=== PATIENT | female | born 1940 | race Caucasian/White ===

== ENCOUNTER 2019-09-30 11:29 | Outpatient (CLI) | payer OTHER, SELFPAY ==
--- NOTE | ~2019-09-30 | XR_ITS ---
EXAMINATION: XR hip RT 2V w AP pelvis EXAM DATE: 09/30/2019 12:16 INDICATION: Acute onset pelvic, right hip pain. TECHNIQUE: Right hip frontal, 'frog leg' projections for interpretation. Frontal projection pelvis. There is no prior study for comparison. FINDINGS: Smooth right hip femoral head contour, no radiographic evidence of avascular necrosis. The re is mild symmetric bilateral hip primary osteoarthritis. There are no acute fractures or dislocatio ns identified. There is no subcutaneous gas. The soft tissue is unremarkable. There are no radiop aque foreign bodies. IMPRESSION: No acute osseous findings. Mild bilateral hip osteoarthritis. Reviewed, dictated and finalized at location A.
== END 2019-09-30 11:30 | disposition home or self-care (01) ==
PROVIDERS: PCP Physician Assistant; Visit Provider Physician Assistant
DX: M25.551 Pain in right hip (principal); M16.0 Bilateral primary osteoarthritis of hip
CPT/HCPCS: 73502

== ENCOUNTER 2021-03-04 04:17 | Observation (INO) | payer OTHER, SELFPAY ==
[2021-03-04] VITALS (20 sets, daily range): BP systolic 109–199; BP diastolic 9–93; PULSE 65–95; RESP 16–26; TEMP 36.6–37.1; O2SAT 95–100; BMI 30.3
--- NOTE | ~2021-03-04 | XR_ITS ---
XR knee LT 2V DATE: 03/06/2021 15:01 INDICATION: Fall. Knee pain and bruising TECHNIQUE: 3 views including crosstable lateral COMPARISON: August 08, 2015 bilateral knees FINDINGS: Diffuse osteopenia. No fracture or dislocation or joint effusion is evident. No periosteal reaction or bone destruction. There is tricompartment osteoarthritis, mild at the medial compartment, moderate at the lateral parag rtment and severe at the patellofemoral compartment. Femoral and popliteal arterial calcifications. 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
--- NOTE | ~2021-03-04 | CT_ITS ---
EXAMINATION: CT brain wo con EXAM DATE: 03/04/2021 07:16 INDICATION: Dizziness. TECHNIQUE: Spiral CT of the head was performed without contrast. Axial, coronal and sagittal images were reviewed. The dose-length product (DLP) for this examination was 605.33 mGy-cm. The exposure w as tailored according to patient size, and iterative reconstruction (ASIR) was used as additional dos e reduction technique. Comparison is made to prior examination from 08/08/2015. FINDINGS: There is no acute intraparenchymal hemorrhage. No evidence of intraparenchymal brain mass lesion. No evidence of acute infarction. Please note that initial head CT has limited sensitivity f or small or acute infarctions. 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 There is moderate to severe periventricular and subcortical hypodensity, nonspecific but probably related to small ves maulik ischemic disease. There is moderate prominence of the sulci and ventricles related to cerebral atrophy. There is intracranial carotid arteriosclerosis. There are no extra-axial collections. Th ere is no mass effect or midline shift. The orbits are unremarkable. Soft tissue is unremarkable. The visualized sinuses and mastoid air cells are well aerated. IMPRESSION: 1. No acute intracranial findings. 2. Chronic age related findings. Reviewed, dictated and finalized at location A.
--- NOTE | ~2021-03-04 | XR_ITS ---
XR ribs LT 2V DATE: 03/06/2021 15:01 INDICATION: Left rib pain after fall TECHNIQUE: 3 views of left ribs COMPARISON: 07/22/2016 PA and lateral chest FINDINGS: There is diffuse osteopenia. No left rib fracture or bone destruction is evident. There is extensive calcification of the thoracic and abdominal aorta. IMPRESSION: Diffuse osteopenia; no apparent rib fracture is noted Reviewed, dictated and finalized at location B.
--- NOTE | 2021-03-04 04:52 | PC.NURSE ---
attempted to obtain orthostatic vitals per MD order. pt unable to lie down d/t dizziness. manual bp obtained sitting and standing.
[2021-03-04] MEDS: SODIUM CHLORIDE 0.9% IV 1,000 ML 999 ML IV CONT (04:58)
[2021-03-04] MEDS: MECLIZINE HCL 25 MG TABLET PO (04:58)
[2021-03-04 05:01] LABS: Basophils Absolute Auto 0.1 K/mm3 (0.0-0.1); Basophils Percent Auto 0.6 % (0.2-1.2); Eosinophils Absolute Auto 0.1 K/mm3 (0-0.3); Eosinophils Percent Auto 1.1 % (0-4.4); Hematocrit 39.3 % (37.0-47.0); Hemoglobin 12.6 g/dL (12.0-15.0); Immature Granulocyte Absolute 0.02 K/mm3 (0.00-0.031); Immature Granulocyte Percent A 0.2 % (0-0.5); Lymphocytes Percent Auto 23.2 % (18.3-44.2); Mean Corpuscular HGB Conc 32.1 g/dl (32-36); Mean Corpuscular Hemoglobin 30.7 pg (26-34); Mean Corpuscular Volume 95.6 fl (80-100); Mean Platelet Volume 9.8 fl (7.4-10.4); Monocytes Absolute Auto 0.8 K/mm3 (0.1-0.6); Monocytes Percent Auto 9.3 % (2.6-8.5); Neutrophils Absolute Auto 5.4 K/mm3 (1.3-6.7); Neutrophils Percent Auto 65.6 % (45.5-73.1); Platelet Count Result 209 k/mm3 (150-375); Red Blood Count 4.11 M/mm3 (4.2-5.4); Red Cell Distribution Width 13.8 % (11.5-14.5); White Blood Count 8.2 K/mm3 (4.5-10.0)
[2021-03-04 05:17] LABS: Anion Gap 6 mmol/L (8-16); Blood Urea Nitrogen 14 mg/dL (7-17); Calcium 8.9 mg/dL (8.4-10.2); Carbon Dioxide 27 mmol/L (22-30); Chloride 106 mmol/L (98-107); Estimated CRCL calculation 43 ml/min; Estimated Glomerular Filt Rate > 60; Glucose 111 mg/dL (65-110); Potassium 3.4 mmol/L (3.4-5.0); Sodium 139 mmol/L (137-145)
--- NOTE | 2021-03-04 06:17 | ED.GENADULT ---
HPI - General Adult General Chief complaint: Fall Stated complaint: glf, when standing gets dizzy/nauseated Time Seen by Provider: 03/04/21 04:20 History of Present Illness HPI narrative: Patient is an 80-year-old female who presents ER after falling onto the ground. She reports she is sitting up out of bed to use her bedside commode when she just began to fall down forward. She landed on her knees. She has no knee pain. She is too weak to stand back up. She did not strike her head or lose consciousness. No evidence of injury or trauma. Patient reports she was feeling very dizzy but had no sweats or nausea or vomiting. She has no focal weakness in arm or leg. No slurred speech or facial droop. Denies any urinary symptoms. Related Data Allergies Allergy/AdvReac Type Severity Reaction Status Date / Time SHAQUILLE Inhibitors Allergy Unknown Unknown Verified 03/04/21 04:54 amlodipine Allergy Unknown Unknown Verified 03/04/21 04:54 amoxicillin Allergy Unknown Unknown Verified 03/04/21 04:54 atorvastatin Allergy Unknown Unknown Verified 03/04/21 04:54 codeine Allergy Unknown N/V Verified 07/22/16 10:28 ibuprofen Allergy Unknown Unknown Verified 03/04/21 04:54 meperidine Allergy Unknown Unknown Verified 03/04/21 04:54 Penicillins Allergy Unknown Unknown Verified 03/04/21 04:54 simvastatin Allergy Unknown Unknown Verified 03/04/21 04:54 Review of Systems Review of Systems: All systems reviewed & are unremarkable except as noted in HPI and below Constitutional: Constitutional: Denies chills, Denies fever(s) and Reports weakness ENT: Reports dizziness, Denies nasal congestion and Denies sore throat Cardiovascular: Cardiovascular: Denies chest pain and Denies radiating jaw, neck or arm pain Musculoskeletal: Musculoskeletal: Denies arthralgias and Denies joint swelling Neurologic: Reports dizziness, Denies headache(s), Denies focal weakness and Denies numbness PMF Past Medical History Medical History (Updated 03/04/21 @ 06:33 by Lisandro Asher MD) Hypertension Surgical History Surgical History (Updated 03/04/21 @ 06:19 by Lisandro Asher MD) No pertinent past surgical history Family History Family History (Updated 02/04/14 @ 07:13 by DOCTOR UNKNOWN) Father Family history of malignant neoplasm Mother Family history of coronary artery disease Social History Social History Smoking status: Never smoker Second hand tobacco smoke exposure: No Alcohol intake: never Exam Narrative: GENERAL: Well-appearing, well-nourished, and in no acute distress. HEAD: Normocephalic, atraumatic. EYES: PERRL and EOMI with left gaze nystagmus. ENT: Mucous membranes moist. TMs unremarkable. CHEST: Clear to auscultation. No respiratory distress. HEART: Regular rate and rhythm. Normal peripheral pulses. ABDOMEN: Soft, nontender, nondistended. EXTREMITIES: Normal range of motion. No edema. SKIN: Warm, dry, no rash. NEURO: No focal deficits. No upper or lower extremity drift. Alert and oriented x3. Course Course Emergency Course: Patient is able to get up and walk but with a guarded gait and requires assistance. Lives at home by herself. Evidence of UTI. Patient also seems to have some vertigo along with this is making it difficult for her to ambulate. She has some left gaze nystagmus and feels dizzy and nauseated with standing and other movements. Vital Signs Vital signs: Vital Signs Temperature 98.7 F 03/04/21 04:39 Pulse Rate 83 03/04/21 04:39 Respiratory Rate 18 03/04/21 04:39 Blood Pressure 170/90 H 03/04/21 04:39 Pulse Oximetry 98 03/04/21 04:39 Temperature 98.7 F 03/04/21 04:39 Pulse Rate 82 03/04/21 05:07 Respiratory Rate 20 03/04/21 05:07 Blood Pressure 165/90 H 03/04/21 04:52 Pulse Oximetry 100 03/04/21 05:07 Medical Decision Making Vital Signs Vital Signs: Vital Signs Temperature 98.7 F 03/04/21 04:39 Pulse Rate 83 03/04/21 04:39 Respiratory Rate
[2021-03-04 06:26] LABS: Add Urine Microscopic? YES; Appearance Urine Cloudy (Clear); Bacteria Urine Trace /hpf; Bilirubin Urine Negative (Negative); Blood Urine 1+ (Negative); Color Urine Yellow (Yellow); Glucose Urine UA Negative (Negative); Ketones Urine Negative (Negative); Leukocyte Esterase Ur 1+ LEU/UL (Negative); Mucus Urine Rare /lpf; Nitrate Urine Positive (Negative); Protein Urine Negative (Negative); RBC Urine 0-2 /hpf (0-2); Specific Grav Ur 1.008 (1.001-1.035); Squamous Epithelial Cell Urine Moderate /hpf (Few); Urobilinogen Urine Negative mg/dL (<2.0); WBC Urine 21-30 /hpf
--- NOTE | 2021-03-04 10:44 | PM.IMHP ---
H&P: HPI History of Present Illness Date/Time: 03/04/21 10:44 Chief Complaint: Fall Generalized weakness Narrative: Patient is 80 years old elderly female who was admitted through the emergency room with the following complaints. According to the patient she was doing fine at home but for the last few days she was feeling weak and tired. She tried to get up from her bed and go to commode when she suddenly fell down. There was no chest pain or shortness of breath or palpitation before or after falling down. Patient did not had her head. Patient did not lose consciousness. Patient just felt weak and tired. Patient did hit her he needs but denies any pain in the knees at present time. Patient was found to have a urinary tract infection. And was admitted for further evaluation treatment. At present time patient denies any shortness of breath or chest pain. Patient mood is stable Review of Systems Review of Systems: All systems reviewed & are unremarkable except as noted in HPI and below (the history and physical examination.) [facility] Past Medical History Medical History Hypertension Surgical History Surgical History No pertinent past surgical history Family History Family History Father Family history of malignant neoplasm Mother Family history of coronary artery disease Social History Social History Smoking status: Never smoker Second hand tobacco smoke exposure: No Alcohol intake: never Substance use: never Spiritual care concerns: No Meds Home Medications and Allergies Home Medications Medication Instructions Recorded Confirmed Type alprazolam [Xanax] 0.25 mg PO TID PRN 03/04/21 03/04/21 History diphenoxylate-atropine [Lomotil] 1 tablet PO QID PRN 03/04/21 03/04/21 History lisinopril 20 mg PO DAILY 03/04/21 03/04/21 History Allergies Allergy/AdvReac Type Severity Reaction Status Date / Time SHAQUILLE Inhibitors Allergy Unknown Unknown Verified 03/04/21 11:14 amlodipine Allergy Unknown Unknown Verified 03/04/21 11:14 amoxicillin Allergy Unknown Unknown Verified 03/04/21 11:14 atorvastatin Allergy Unknown Unknown Verified 03/04/21 11:14 codeine Allergy Unknown N/V Verified 03/04/21 11:14 ibuprofen Allergy Unknown Unknown Verified 03/04/21 11:14 meperidine Allergy Unknown Unknown Verified 03/04/21 11:14 Penicillins Allergy Unknown Unknown Verified 03/04/21 11:14 simvastatin Allergy Unknown Unknown Verified 03/04/21 11:14 Vital Signs Vital Signs - 24 hr 03/04/21 04:39 03/04/21 04:51 03/04/21 04:52 Temperature 37.1 C Pulse Rate 83 95 Respiratory Rate 18 Blood Pressure 170/90 H 170/9 H 165/90 H Pulse Oximetry 98 03/04/21 05:07 03/04/21 05:15 03/04/21 05:35 Temperature Pulse Rate 82 73 77 Respiratory Rate 20 16 19 Blood Pressure Pulse Oximetry 100 99 98 03/04/21 05:51 03/04/21 06:00 03/04/21 06:01 Temperature Pulse Rate 84 80 80 Respiratory Rate 18 20 18 Blood Pressure 199/66 H Pulse Oximetry 99 100 100 03/04/21 06:03 03/04/21 06:15 03/04/21 06:33 Temperature Pulse Rate 80 82 90 Respiratory Rate 23 H 19 18 Blood Pressure 196/81 H Pulse Oximetry 100 100 100 03/04/21 07:16 03/04/21 07:20 03/04/21 07:23 Temperature Pulse Rate 94 79 Respiratory Rate 26 H 16 Blood Pressure 186/93 H 186/93 H Pulse Oximetry 100 97 03/04/21 08:01 03/04/21 10:19 Temperature Pulse Rate 71 88 Respiratory Rate 17 16 Blood Pressure 154/72 H 172/72 H Pulse Oximetry 99 100 Exam Narrative: GENERAL: Well-appearing, well-nourished, and in no acute distress. HEAD: Normocephalic, atraumatic. EYES: PERRL and EOMI with left gaze nystagmus. ENT: Mucous membranes moist. TMs unremarkable. CHEST: Clear to auscultation. No respiratory distress. HEART: Reg
[2021-03-04] MEDS: SODIUM CHLORIDE 0.9% IV 1,000 ML 125 ML IV CONT ×2 (11:05→20:42)
--- NOTE | 2021-03-04 11:08 | ADMGEN ---
This patient, Gege Jewell, was admitted to Medical Room 242-. Patient/family oriented to hospital policies and general routines including ID bracelet, bed and alarms, visiting hours, pain management, procedures, bathroom and other care routines, personal items, smoking policy, room service/diet, and visiting hours. Information on how to activate the Rapid Response Team has been discussed. Patient/Family are encouraged to report perceived risks to care and to ask questions if they do not understand what they are told or what they should do.
[2021-03-04] MEDS: lisinopriL 20 MG TABLET PO (14:54)
[2021-03-04] MEDS: HEPARIN SODIUM 5,000 UNITS/ML VIAL 5000 UNITS SUB-Q (20:43)
[2021-03-04] MEDS: ACETAMINOPHEN 500 MG TABLET 1000 MG PO (20:43)
[2021-03-05] MEDS: SODIUM CHLORIDE 0.9% IV 1,000 ML 125 ML IV CONT ×3 (05:12→21:44)
[2021-03-05 05:23] LABS: Hematocrit 34.3 % (37.0-47.0); Hemoglobin 10.8 g/dL (12.0-15.0); Mean Corpuscular HGB Conc 31.5 g/dl (32-36); Mean Corpuscular Hemoglobin 30.9 pg (26-34); Mean Corpuscular Volume 98.3 fl (80-100); Mean Platelet Volume 10.8 fl (7.4-10.4); Platelet Count Result 168 k/mm3 (150-375); Red Blood Count 3.49 M/mm3 (4.2-5.4); Red Cell Distribution Width 13.7 % (11.5-14.5); White Blood Count 8.5 K/mm3 (4.5-10.0)
[2021-03-05 05:32] LABS: Alanine Aminotransferase 10 U/L (4-35); Alkaline Phosphatase 87 U/L (38-126); Anion Gap 5 mmol/L (8-16); Aspartate Amino Transferase 20 U/L (14-36); Bilirubin,Total 0.7 mg/dL (0.2-1.3); Blood Urea Nitrogen 10 mg/dL (7-17); Calcium 8.2 mg/dL (8.4-10.2); Carbon Dioxide 23 mmol/L (22-30); Chloride 112 mmol/L (98-107); Estimated CRCL calculation 48 ml/min; Estimated Glomerular Filt Rate > 60; Glucose 100 mg/dL (65-110); Potassium 3.8 mmol/L (3.4-5.0); Sodium 140 mmol/L (137-145)
[2021-03-05 06:00] VITALS: BP 139/53; PULSE 59; RESP 18; TEMP 36.3; O2SAT 97
[2021-03-05] MEDS: HEPARIN SODIUM 5,000 UNITS/ML VIAL 5000 UNITS SUB-Q ×2 (08:29→20:55)
[2021-03-05] MEDS: lisinopriL 20 MG TABLET PO (08:29)
--- NOTE | 2021-03-05 08:45 | PM.IMPN ---
Progress Note: A&P Assessment and Plan (1) Acute UTI: Code(s): N39.0 - Urinary tract infection, site not specified Status: Acute Assessment and Plan: Will continue with IV antibiotics. Urine culture is pending (2) Vertigo: Code(s): R42 - Dizziness and giddiness Status: Acute Assessment and Plan: Currently asymptomatic. Monitor closely. (3) Fall: Code(s): W19.XXXA - Unspecified fall, initial encounter Status: Acute Assessment and Plan: 03/05/2021 Start physical therapy. black off worker for possible alf placement. Urine cultures are pending, will continue current IV antibiotics. Subjective Date/time seen: 03/05/21 08:45 Patient was seen during the morning rounds today. Patient vertigo is better. No shortness of breath or chest pain. No abdominal pain, no nausea, no vomiting. Mood stable. Review of Systems Review of Systems: All systems reviewed & are unremarkable except as noted in HPI and below (the history and physical examination.) Exam Narrative: GENERAL: Well-appearing, well-nourished, and in no acute distress. HEAD: Normocephalic, atraumatic. EYES: PERRL and EOMI with left gaze nystagmus. ENT: Mucous membranes moist. TMs unremarkable. CHEST: Clear to auscultation. No respiratory distress. HEART: Regular rate and rhythm. Normal peripheral pulses. ABDOMEN: Soft, nontender, nondistended. EXTREMITIES: Normal range of motion. No edema. SKIN: Warm, dry, no rash. NEURO: No focal deficits. No upper or lower extremity drift. Alert and oriented x3. Objective Data Vital Signs Vital Signs: Vital Signs - 24 hr 03/04/21 10:19 03/04/21 11:07 03/04/21 14:00 Temperature 36.6 C 36.8 C Pulse Rate 88 65 84 Respiratory Rate 16 19 20 Blood Pressure 172/72 H 176/51 H 150/55 H Pulse Oximetry 100 100 98 03/04/21 22:00 03/05/21 06:00 Temperature 36.8 C 36.3 C L Pulse Rate 91 59 L Respiratory Rate 16 18 Blood Pressure 109/86 139/53 L Pulse Oximetry 95 97 Intake/Output Intake/Output: Intake & Output 03/02/21 03/03/21 03/04/21 03/05/21 23:59 23:59 23:59 23:59 Intake Total 2830 1350 Output Total 200 Balance 2830 1150 Meds/Results Medications: Active Medications Generic Name Dose Route Start Last Admin Trade Name Alecq PRN Reason Stop Dose Admin Acetaminophen 1,000 mg 03/04/21 20:35 03/04/21 20:43 Acetaminophen 500 Mg Tablet PO 1,000 mg Q6H PRN Administration Mild Pain (1-3) or Fever Alprazolam 0.25 mg 03/04/21 11:40 Alprazolam (*Crx) 0.25 Mg Tablet PO TID PRN Anxiety Diphenoxylate HCl/Atropine 1 tablet 03/04/21 11:40 Diphenoxylate/Atropine (*Crx) 2.5 Mg Tablet PO QID PRN Diarrhea Heparin Sodium (Porcine) 5,000 units 03/04/21 21:00 03/05/21 08:29 Heparin Sodium 5,000 Units/Ml Vial SUB-Q 5,000 units Q12HR VALARIE Administration Sodium Chloride 1,000 mls @ 125 mls/hr 03/04/21 08:25 03/05/21 05:12 Normal Saline Iv IV CONT 125 mls/hr .Q8H VALARIE Administration Ceftriaxone Sodium/Dextrose 1 gm in 50 mls @ 100 mls/hr 03/05/21 06:00 03/05/21 05:44 Rocephin 1 Gm/D5w 50 Ml IVPB Infused Q24H VALARIE Infusion Lisinopril 20 mg 03/04/21 11:41 03/05/21 08:29 Lisinopril 20 Mg Tablet PO 20 mg DAILY VALARIE Administration Radiology Results: ITS Impressions Head CT 03/04/21 07:29 IMPRESSION: 1. No acute intracranial findings. 2. Chronic age related findings. Labs Labs: Laboratory Results - last 24 hr 03/05/21 03/05/21 04:39 04:39 WBC 8.5 RBC 3.49 L Hgb 10.8 L Hct 34.3 L MCV 98.3 MCH 30.9 MCHC 31.5 L RDW 13.7 Plt Count 168 MPV 10.8 H Sodium 140 Potassium 3.8 Chloride 112 H Carbon Dioxide 23 Anion Gap 5 L BUN 10 Creatinine 0.70 Estim Creat Clear Calc 48 Estimated GFR > 60 Glucose 100 Calcium 8.2 L Total Bilirubin 0.7 AST 20 ALT 10 Alkaline Phosphatase 87 To
[2021-03-05 13:57] VITALS: BP 126/61; PULSE 98; RESP 18; TEMP 36.6; O2SAT 98
[2021-03-05 19:24] VITALS: BP 174/80; PULSE 90; RESP 17; TEMP 36.6; O2SAT 96
[2021-03-06 03:37] VITALS: BP 183/60; PULSE 88; RESP 17; TEMP 37.2; O2SAT 95
[2021-03-06] MEDS: SODIUM CHLORIDE 0.9% IV 1,000 ML 125 ML IV CONT (05:52)
[2021-03-06 07:32] VITALS: BP 158/73; PULSE 77; O2SAT 98
[2021-03-06] MEDS: lisinopriL 20 MG TABLET PO (08:09)
[2021-03-06] MEDS: ACETAMINOPHEN 500 MG TABLET 1000 MG PO (08:09)
[2021-03-06] MEDS: HEPARIN SODIUM 5,000 UNITS/ML VIAL 5000 UNITS SUB-Q (08:09)
--- NOTE | 2021-03-06 13:20 | PC.NURSE ---
Called pharmacy for missing pepcid. I left a message, because there was no answer.
[2021-03-06 14:25] VITALS: BP 175/65; PULSE 92; RESP 16; TEMP 36.8; O2SAT 98
--- NOTE | 2021-03-06 14:36 | PC.NURSE ---
Left a second message for pharmacy notifying them I am still missing the one time pepcid ordered for 1238.
[2021-03-06] MEDS: FAMOTIDINE 20 MG TABLET PO (15:25)
[2021-03-06] MEDS: ONDANSETRON INJ 4 MG/2 ML VIAL IV PUSH (16:12)
--- NOTE | 2021-03-06 16:13 | PM.DS ---
DS: Admitting Diagnosis Discharge Date 03/06/21 Admitting Diagnosis UTI DS: Discharge Diagnosis Discharge Diagnosis (1) Fall: Code(s): W19.XXXA - Unspecified fall, initial encounter Status: Acute Assessment and Plan: She had a fall at home in which she fell on to her knees. She did not lose consciousness and denied precipitating symptoms. Head CT on presentation with no acute findings. She complained of left knee pain and pain about the left ribs around left lateral chest wall. She did have some bruising of her left knee. Left knee x-ray showed no fracture or dislocation with evidence of osteoarthritis. No rib fracture on x-ray. She was evaluated by PT/OT. She uses a walker at home. Fall precautions discussed at length. Home health services offered but patient declined. (2) Acute UTI: Code(s): N39.0 - Urinary tract infection, site not specified Status: Acute Assessment and Plan: UA abnormal on presentation. Urine culture with growth of >100k Klebsiella pneumoniae. She was started on IV Rocephin and transitioned to PO Cefdinir on discharge to complete a 7 day course. (3) Hypertension: Code(s): I10 - Essential (primary) hypertension Status: Inactive Assessment and Plan: Blood pressures reviewed during hospitalization and were persistently elevated in the 170s systolic. Home lisinopril was increased to 40 mg daily and she was instructed to monitor her blood pressures at home and follow-up with her PCP in 1 week. Instructed to bring a log of BP recordings to this appointment. (4) Vertigo: Code(s): R42 - Dizziness and giddiness Status: Acute Assessment and Plan: No issues during hospitalization. Did not contribute to her fall. DS: Summary Hospital Course Hospital Course: Date of admission: 03/04/2021 Date of discharge: 03/06/2021 Gege Jewell is an 80-year-old female with history of hypertension who presented to the emergency department on 03/04/2021 after having a fall at home after which she felt too weak to stand back up. On presentation to the emergency department, her blood pressure was elevated at 1 70/90 with additional vital signs stable, CBC and BMP unremarkable, urinalysis abnormal, and head CT was negative for acute findings. She was treated for urinary tract infection and had symptomatic improvement. She was evaluated by PT/OT. Home health was offered, however the patient declined. She reported she was getting around well without difficulty using her walker and wished to return home. Her son came and down to stay with her for the time being. Given her overall improvement, she was determined to no longer require inpatient care and was felt to be stable for discharge. We discussed worrisome signs and symptoms for which to return and she was educated on her medications. She was discharged in hemodynamically stable condition on 03/06/2021. Status at Discharge Functional status at discharge: wheelchair bound Overall status at discharge: patient is progressing back to baseline Time Spent with Patient Time attestation: Total time spent providing and/or coordinating discharge services: 45 minutes Time spent: Greater than 30 minutes Exam Narrative: Ms. Jewell is a well-nourished, well-appearing 80-year-old female who is lying semi recumbent in bed. She appears comfortable and is in NARD. Neuro: awake, alert and oriented x4, speech clear, no focal neuro deficits noted HEENMT: normocephalic, atraumatic, EOMI, sclerae anicteric, moist oral mucosa Neck: supple, no lymphadenopathy Respiratory: clear to auscultation bilaterally, nonlabored breathing Cardio: regular rate, regular rhythm with S1-S2 Abdomen: nondistended, normoactive bowel sounds, soft, nontender to palpation Extremities: no edema, erythema, or tenderness to palpation, DP pulses 2+ bilaterally Skin: no rashes or lesions, warm and dry Psych: appropriate moo
== END 2021-03-06 16:53 | disposition home or self-care (01) ==
LOC: ANHED 08:27 → ANH2MED 03-05 06:41
PROVIDERS: Emergency Medicine; Internal Medicine; Admitting Provider Internal Medicine; Emergency Provider Emergency Medicine; PCP Physician Assistant; Visit Provider Internal Medicine
DX: N39.0 Urinary tract infection, site not specified (principal); B96.1 Klebsiella pneumoniae [K. pneumoniae] as the cause of diseases classified elsewhere; R42 Dizziness and giddiness; W19.XXXA Unspecified fall, initial encounter; R53.1 Weakness; I10 Essential (primary) hypertension
CPT/HCPCS: 36415; 70450; 71100; 73560; 80048; 80053; 81001; 85025; 85027; 87077; 87086; 87186; 96361; 96365; 96366; 96372; 96374; 96375; 96376; 97110; 97116; 97161; 99285; A9270; G0378; J0696; J1644; J2405; J7030

== ENCOUNTER 2022-04-19 10:45 | Outpatient (CLI) | payer OTHER, SELFPAY ==
[2022-04-19 11:38] LABS: Hematocrit 37.6 % (37.0-47.0); Hemoglobin 11.8 g/dL (12.0-15.0); Mean Corpuscular HGB Conc 31.4 g/dl (32-36); Mean Corpuscular Hemoglobin 30.5 pg (26-34); Mean Corpuscular Volume 97.2 fl (80-100); Mean Platelet Volume 10.4 fl (7.4-10.4); Platelet Count Result 236 k/mm3 (150-375); Red Blood Count 3.87 M/mm3 (4.2-5.4); White Blood Count 7.2 K/mm3 (4.5-10.0)
[2022-04-19 11:53] LABS: Alanine Aminotransferase 12 U/L (6-35); Albumin Level 3.1 g/dL (3.5-5.1); Alkaline Phosphatase 80 U/L (38-126); Anion Gap 3 mmol/L (8-16); Aspartate Amino Transferase 22 U/L (14-36); Bilirubin,Total 0.6 mg/dL (0.2-1.3); Blood Urea Nitrogen 13 mg/dL (7-17); Calcium 8.4 mg/dL (8.4-10.2); Carbon Dioxide 27 mmol/L (22-30); Chloride 108 mmol/L (98-107); Cholesterol 217 mg/dL (0-200); Estimated Glomerular Filt Rate > 60; Glucose 94 mg/dL (65-110); HDL Direct 66 mg/dL; Potassium 3.6 mmol/L (3.4-5.0); Sodium 138 mmol/L (137-145); Triglycerides 100 mg/dL (<150)
[2022-04-19 12:04] LABS: LDL Cholesterol Direct 111 mg/dL
[2022-04-19 12:20] LABS: Thyroid Stimulating Hormone 0.727 uIU/mL (0.465-4.680)
[2022-04-19 13:47] LABS: Vitamin D 25 Hydroxy < 12.8 ng/mL
== END 2022-04-19 10:46 | disposition home or self-care (01) ==
LOC: ANHLAB 10:46
PROVIDERS: PCP Family Medicine; Visit Provider Nurse Practitioner Family
DX: D64.9 Anemia, unspecified (principal); I10 Essential (primary) hypertension; E78.5 Hyperlipidemia, unspecified; F41.9 Anxiety disorder, unspecified; Z13.29 Encounter for screening for other suspected endocrine disorder; E55.9 Vitamin D deficiency, unspecified
CPT/HCPCS: 36415; 80053; 80061; 82306; 84443; 85027

== ENCOUNTER 2022-06-20 12:55 | Emergency (ER) | payer OTHER, SELFPAY ==
--- NOTE | ~2022-06-20 | CT_ITS ---
EXAMINATION: CT cervical spine wo con DATE: 06/20/2022 13:35 INDICATION: Neck pain TECHNIQUE: Computed tomography (CT) of the cervical spine was performed without intravenous contrast. The dose-length product (DLP) was 129.94 mGy-cm. Automated exposure control and iterative reconstruc tion technique were employed. COMPARISON: 08/08/2015 FINDINGS: There are 2 mm of unchanged anterolisthesis of C3 on C4 and C4 on C5 and 2 mm of stable ret rolisthesis of C6 on C7. The C5 and C6 vertebral bodies are fused. There is moderate loss of interver tebral disc space height at C6-7. There is no fracture. The odontoid process is intact. There is mode rate to severe multilevel facet and uncovertebral joint osteoarthritis. IMPRESSION: 1. Moderate cervical spondylosis without acute findings or significant interval change. Reviewed, dictated and finalized at location B. ING NURSE
--- NOTE | ~2022-06-20 | XR_ITS ---
EXAMINATION: XR pelvis 1-2V DATE: 06/20/2022 13:41 INDICATION: Pelvic pain post ground-level fall TECHNIQUE: An anteroposterior view of the pelvis was obtained. COMPARISON: 09/30/2019 FINDINGS: Mild dextrocurvature of the lower lumbar spine with moderate spondylosis. Sacral arches appear intact . No fracture. Mild osteoarthritis at the bilateral hip and sacral joints. IMPRESSION: 1. Degenerative skeletal changes. No acute osseous abnormality. Reviewed, dictated and finalized at location A. CINE AIDE
--- NOTE | ~2022-06-20 | XR_ITS ---
EXAMINATION: XR chest 1V INDICATION: Ground-level fall TECHNIQUE: Frontal view of the chest is obtained. COMPARISON: 08/08/2015 FINDINGS: The lungs are free of acute opacities. No pleural effusion or pneumothorax. The cardiomedia stinal silhouette is stable. IMPRESSION: 1. No acute cardiopulmonary abnormality. Reviewed, dictated and finalized at location B. EKEEPING ASSISTANT
--- NOTE | ~2022-06-20 | CT_ITS ---
EXAMINATION: CT abdomen pelvis w con DATE: 06/20/2022 15:49 INDICATION: Abdominal pain TECHNIQUE: Computed tomography (CT) of the abdomen and pelvis was performed with 100 mL Omnipaque-350 intravenous contrast. Automated exposure control and iterative reconstruction technique were employe d. The dose-length product was 447.26 mGy-cm. COMPARISON: None FINDINGS: Mild dependent atelectasis in bilateral lower lobes. No pleural effusion. Mild cardiomegaly with athe rosclerotic coronary artery calcific location. Small pericardial effusion. Small sliding-type hiatal hernia. Liver, gallbladder, spleen, pancreas, bilateral adrenal glands and kidneys are normal. Promin ent diverticulosis along the sigmoid and distal descending colon with a few additional diverticula at the ascending colon, all without adjacent inflammatory stranding to suggest diverticulitis. No bowel obstruction. Normal appendix. There is pelvic floor relaxation. Couple tiny calcified bladder stones in the dependent left side of the bladder. Several phleboliths in the pelvis. Age-appropriate atroph y of the otherwise unremarkable uterus and bilateral adnexa. No free intraperitoneal gas or fluid. No pathologically enlarged abdominal or pelvic lymphadenopathy. There is calcified atherosclerosis of t he normal caliber abdominal aorta and many of the other arteries. Thoracolumbar levoscoliosis with mo derate lower thoracic and moderate to severe lumbar spondylosis. Small bone islands in the pelvis and bilateral femoral heads. IMPRESSION: 1. No acute intra-abdominal/pelvic process. 2. Diverticulosis. 3. Small sliding-type hiatal hernia. 4. A couple small small bladder stones. No more proximal urolithiasis. 5. Cardiomegaly. Reviewed, dictated and finalized at location A. SON OPERATOR
--- NOTE | ~2022-06-20 | CT_ITS ---
EXAMINATION: CT brain wo con INDICATION: Headache COMPARISON: 03/04/2021 TECHNIQUE: Standard unenhanced head CT. The dose-length product (DLP) was 605.33 mGy-cm. The mA was a djusted according to patient size. Iterative reconstruction technique was employed. FINDINGS: There is no acute intraparenchymal hemorrhage. No evidence of mass lesion. No evidence of a cute infarction. There is an old lacunar infarct of the right basal ganglia. Areas of chronic infarct ion are also noted in the right temporal and occipital lobes. There is moderate periventricular and s ubcortical hypodensity probably related to small vessel ischemic disease. There is moderate prominenc e of the sulci and ventricles related to cerebral atrophy. Intracranial calcified cerebral atheroscle rosis is noted. There are no extra-axial collections. There is no mass effect or midline shift. The o rbits and soft tissues are unremarkable. The visualized sinuses and mastoid air cells are well aerate d. IMPRESSION: 1. Areas of prior infarction without acute intracranial abnormality. 2. Age related findings. Reviewed, dictated and finalized at location B. NING AND DEVELOPMENT DIRECTOR
[2022-06-20 13:01] VITALS: BP 184/69; PULSE 74; RESP 20; TEMP 36; O2SAT 98
--- NOTE | 2022-06-20 13:15 | ED.FALL ---
HPI - Fall General Chief Complaint: Fall Stated Complaint: ground level fall, dizzy & nausea Time Seen by Provider: 06/20/22 13:09 Source: RN notes reviewed History of Present Illness HPI Narrative: Patient presents emergency department from home via EMS for a fall. Patient states she went out to get her mail and fell while attempting to go get her mail. She states she is unsure if she tripped or what happened but ended up on the ground she is unsure if she hit her head but did have some nausea following the fall was given Zofran by EMS with improvement of her nausea patient states she does normally walk with a walker but was not using the walker to walk to the mailbox she denies any pain or injury at this time she denies any recent illness but does note that she has been falling more frequently lately she denies any fevers or chills chest pain shortness of breath abdominal pain nausea vomiting diarrhea or any other symptoms Related Data Allergies Allergy/AdvReac Type Severity Reaction Status Date / Time SHAQUILLE Inhibitors Allergy Unknown Unknown Verified 04/17/22 14:51 amlodipine Allergy Unknown Unknown Verified 04/17/22 14:51 amoxicillin Allergy Unknown Unknown Verified 04/17/22 14:51 atorvastatin Allergy Unknown Unknown Verified 04/17/22 14:51 ibuprofen Allergy Unknown Unknown Verified 04/17/22 14:51 meperidine Allergy Unknown Unknown Verified 04/17/22 14:51 Penicillins Allergy Unknown Unknown Verified 04/17/22 14:51 simvastatin Allergy Unknown Unknown Verified 04/17/22 14:51 codeine AdvReac Unknown N/V Verified 04/17/22 14:51 Review of Systems Review of Systems: Gen.: Denies fevers or chills Eyes: Denies eye pain or visual change ENT: Denies congestion Respiratory: Denies shortness of breath or cough CV: Denies chest pain or palpitations GI: Denies abdominal pain reports nausea emesis or diarrhea Musculoskeletal: Denies back pain or muscle pain Neuro: Denies numbness, tingling, weakness or focal weakness Skin: Denies rash Except as documented, all other systems reviewed and negative [facility] Past Medical History Medical History Anxiety BMI 23.0-23.9, adult BMI 28.0-28.9,adult Hyperlipidemia Hypertension IBS (irritable bowel syndrome) Surgical History Surgical History H/O knee surgery H/O: hysterectomy No pertinent past surgical history Family History Family History Father Family history of malignant neoplasm Mother Family history of coronary artery disease Diabetes mellitus Sibling No problems noted. 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 HEENT: normocephalic atraumtaic. TMs clear bilaterally. Oral mucosa moist. No tenderness over bilateral zygomatic arch. Full range of motion of jaw without pain. EYES: PERRL NECK: Supple. No midline tenderness to palpation. Full range of motion without pain RESPIRATORY: No respiratory distress. Clear to auscultation bilaterally CARDIOVASCULAR: Regular rate and rhythm without murmurs rubs or gallops. ABDOMINAL: Soft, nontender, nondistended, no rebound or guarding MUSCULOSKELETAl: Moves all extremities. No tenderness to palpation of bilateral upper and lower extremities. No clubbing cyanosis or edema Back: No midline thoracic or lumbar tenderness to palpation NEURO: Awake and alert ?3. Follows commands. Speech normal. No focal deficits. SKIN:: Warm,
--- NOTE | 2022-06-20 13:31 | ECG_ITS ---
Measurements Intervals [place] Rate: 71 P: 105 PA: 145 QRS: -10 QRSD: 97 T: 7 QT: 385 QTc: 421 Interpretive Statements SINUS RHYTHM LOW QRS VOLTAGE IN PRECORDIAL LEADS BORDERLINE R WAVE PROGRESSION, ANTERIOR LEADS BORDERLINE T WAVE ABNORMALITY- INFERIOR LEADS BASELINE ARTIFACT- I, II, III, AVR, AVL, AVF, V1 BORDERLINE ECG NO PREVIOUS ECG AVAILABLE FOR COMPARISON Electronically Signed On 06-20-2022 13:45:46 [employer]UTTER by Roscoe Negron D.O.
[2022-06-20 14:15] VITALS: TEMP 36.6
[2022-06-20 14:15] LABS: Basophils Percent Auto 0.4 % (0.2-1.2); Eosinophils Absolute Auto 0.1 K/mm3 (0-0.3); Eosinophils Percent Auto 1.2 % (0-4.4); Hematocrit 34.4 % (37.0-47.0); Hemoglobin 10.7 g/dL (12.0-15.0); Immature Granulocyte Absolute 0.09 K/mm3 (0.00-0.031); Immature Granulocyte Percent A 1.1 % (0-0.5); Lymphocytes Absolute Auto 2.45 K/mm3 (0.9-3.2); Lymphocytes Percent Auto 29.6 % (18.3-44.2); Mean Corpuscular HGB Conc 31.1 g/dl (32-36); Mean Corpuscular Hemoglobin 30.4 pg (26-34); Mean Corpuscular Volume 97.7 fl (80-100); Mean Platelet Volume 10.3 fl (7.4-10.4); Monocytes Absolute Auto 0.6 K/mm3 (0.1-0.6); Monocytes Percent Auto 7.3 % (2.6-8.5); Neutrophils Percent Auto 60.4 % (45.5-73.1); Platelet Count Result 242 k/mm3 (150-375); Red Blood Count 3.52 M/mm3 (4.2-5.4); Red Cell Distribution Width 13.2 % (11.5-14.5); White Blood Count 8.3 K/mm3 (4.5-10.0)
[2022-06-20 14:19] LABS: Appearance Urine Cloudy (Clear); Bilirubin Urine Negative (Negative); Blood Urine Negative (Negative); Color Urine Yellow (Yellow); Glucose Urine UA Negative (Negative); Ketones Urine Negative (Negative); Leukocyte Esterase Ur 1+ LEU/UL (Negative); Nitrate Urine Positive (Negative); Protein Urine 1+ mg/dL (Negative); Specific Grav Ur 1.025 (1.001-1.035); Urobilinogen Urine 0.2 mg/dL (<2.0)
[2022-06-20 14:24] LABS: INR 1.2; Prothrombin Time 15.1 Seconds (11.1-14.7)
[2022-06-20 14:25] LABS: Partial Thromboplastin Time 25.2 SECONDS (22.3-36.8)
[2022-06-20 14:27] LABS: Alanine Aminotransferase 16 U/L (6-35); Albumin Level 2.8 g/dL (3.5-5.1); Alkaline Phosphatase 83 U/L (38-126); Anion Gap 1 mmol/L (8-16); Aspartate Amino Transferase 22 U/L (14-36); Bilirubin,Total 0.2 mg/dL (0.2-1.3); Blood Urea Nitrogen 17 mg/dL (7-17); Calcium 7.9 mg/dL (8.4-10.2); Carbon Dioxide 29 mmol/L (22-30); Chloride 106 mmol/L (98-107); Estimated Glomerular Filt Rate > 60; Glucose 107 mg/dL (65-110); Potassium 3.2 mmol/L (3.4-5.0); Sodium 136 mmol/L (137-145)
[2022-06-20 14:30] LABS: Bacteria Urine Trace /hpf; Mucus Urine Rare /lpf; RBC Urine 0-2 /hpf (0-2); Squamous Epithelial Cell Urine Rare /hpf (Few); WBC Urine 21-30 /hpf
[2022-06-20 14:31] LABS: Add Urine Microscopic? YES
[2022-06-20 14:39] LABS: Troponin I < 0.012 ng/mL (0.000-0.034)
[2022-06-20] MEDS: POTASSIUM CHLORIDE 20 MEQ TABLET PO (15:17)
[2022-06-20] MEDS: ONDANSETRON INJ 4 MG/2 ML VIAL IV PUSH (15:17)
[2022-06-20 15:54] LABS: Lipase 84 U/L (23-300)
--- NOTE | 2022-06-20 17:00 | PC.NURSE ---
Pt ambulated. Denies dizziness or weakness. Pt states she feels like she is ambulating at baseline.
[2022-06-20 17:10] LABS: Influenza A QL RT-PCR Negative (Negative); Influenza B QL RT-PCR Negative (Negative); SARS-CoV-2 RNA PCR Negative
[2022-06-20 17:34] VITALS: BP 153/61; PULSE 63; RESP 16; O2SAT 99
== END 2022-06-20 17:48 | disposition home or self-care (01) ==
PROVIDERS: Emergency Provider Emergency Medicine; PCP Family Medicine
DX: N39.0 Urinary tract infection, site not specified (principal); S00.93XA Contusion of unspecified part of head, initial encounter; Z20.822 Contact with and (suspected) exposure to COVID-19; E78.5 Hyperlipidemia, unspecified; I10 Essential (primary) hypertension; K58.9 Irritable bowel syndrome, unspecified; Z90.710 Acquired absence of both cervix and uterus; M47.812 Spondylosis without myelopathy or radiculopathy, cervical region; K57.90 Diverticulosis of intestine, part unspecified, without perforation or abscess without bleeding; K44.9 Diaphragmatic hernia without obstruction or gangrene; I51.7 Cardiomegaly; R94.31 Abnormal electrocardiogram [ECG] [EKG]; W18.30XA Fall on same level, unspecified, initial encounter
CPT/HCPCS: 36415; 70450; 71045; 72125; 72170; 74177; 80053; 81001; 83690; 84484; 85025; 85610; 85730; 87077; 87086; 87186; 87636; 93005; 96365; 96375; 99284; A9270; J0696; J2405; Q9967

== ENCOUNTER 2023-01-13 14:52 | Inpatient (IN) | payer OTHER, MEDICAID, SELFPAY ==
--- NOTE | 2023-01-13 | ECG_ITS ---
Measurements Intervals [place] Rate: 74 P: 60 RI: 146 QRS: -9 QRSD: 76 T: 15 QT: 370 QTc: 412 Interpretive Statements SINUS RHYTHM WITH OCCASIONAL SUPRAVENTRICULAR PREMATURE COMPLEXES LOW QRS VOLTAGE IN PRECORDIAL LEADS [QRS DEFLECTION < 1.0 mV IN CHEST LEADS] NONSPECIFIC T-WAVE ABNORMALITY ABNORMAL ECG COMPARED TO ECG 06/20/2022 13:07:06 NO SIGNIFICANT CHANGES Electronically Signed On 01-14-2023 10:21:24 CDT by Dat Lamas M.D.
--- NOTE | ~2023-01-13 | CT_ITS ---
EXAMINATION: CT cervical spine wo con DATE: 01/13/2023 16:00 INDICATION: Fall with neck and upper back pain and increasing weakness and dizziness TECHNIQUE: Computed tomography (CT) of the cervical spine was performed without intravenous contrast. Automated exposure control and iterative reconstruction technique were employed. The dose-length pro duct was 128.05 mGy-cm. COMPARISON: 06/20/2022 FINDINGS: Mild cervical levocurvature. Developmental anterior fusion of C5 and C6. One-2 mm chronic anterolisth esis C4 on C5. 2 mm anterolisthesis C7 on T1. Severe disc height loss with endplate remodeling at C6- C7. Mild disc height loss at C7-T1. Multinodular goiter with approximately 2.4 cm left thyroid mass w ith coarse calcification. Atherosclerotic calcification is at the bilateral carotid bulbs. Cervical s oft tissues are otherwise unremarkable. Visualized apices of lungs are clear. The following disc leve ls are specifically discussed: C2-C3: There is mild bilateral uncovertebral joint osteoarthritis. There is mild left and moderate ri ght facet joint osteoarthritis. There is no neural foraminal stenosis. There is no central canal sten osis. C3-C4: Disc is bulging. There is mild right and moderate left uncovertebral joint osteoarthritis. The re is severe bilateral facet joint osteoarthritis. There is mild right and moderate left neural adrian inal stenosis. There is mild central canal stenosis. C4-C5: There is moderate bilateral uncovertebral joint osteoarthritis. There is severe bilateral face t joint osteoarthritis. There is mild to moderate left and minimal right neural foraminal stenosis. T here is no central canal stenosis. C5-C6: Fusion across the disc space and uncovertebral joints with no hypertrophic changes. There is a lso fusion of the bilateral facet joints. There is no neural foraminal stenosis. There is no central canal stenosis. C6-C7: Posterior endplate osteophytes. There is severe bilateral uncovertebral joint osteoarthritis. There is mild bilateral facet joint osteoarthritis. There is mild bilateral neural foraminal stenosis . There is mild central canal stenosis. C7-T1: There is mild right uncovertebral joint osteoarthritis. There is severe bilateral facet joint osteoarthritis. There is mild bilateral neural foraminal stenosis. There is no central canal stenosis . IMPRESSION: 1. No acute osseous abnormality. 2. Severe cervical spondylosis with developmental anterior and posterior fusion at C5-C6. Reviewed, dictated and finalized at location A.
--- NOTE | ~2023-01-13 | CT_ITS ---
EXAMINATION: CTA brain carotid DATE: 01/16/2023 20:30 INDICATION: Stroke TECHNIQUE: Computed tomographic angiography (CTA) of the head was performed without and with 100 mL O mnipaque-350 intravenous contrast. CTA of the neck was performed with intravenous contrast. Automated exposure control and iterative reconstruction technique were employed. The dose-length product was 1 578.67 mGy-cm. Maximum intensity projection and volume rendered 3D-reconstructions were created by jake hi technologist on a separate workstation. COMPARISON: MR brain 01/15/2023, CT brain 01/13/2023. FINDINGS: CT BRAIN: New right parietal cortical hypodensity near the vertex corresponding to the acute infarct described in the prior MRI. No acute large vessel infarct, intracranial hemorrhage, mass, or hydrocephalus. CTA HEAD: No large vessel occlusion, aneurysm, high flow vascular malformation, nidus or extravasation. Moderat e atherosclerotic calcifications at the bilateral carotid siphons, without significant stenosis. Bila teral hypoplastic P1 segments, the majority of the posterior circulation flow comes from the anterior circulation via the bilateral communicating arteries. Focal decreased enhancement in the right parie enrique lobe near the vertex in the area of acute infarct. Additional focal areas of decreased enhancemen t correspond to areas of encephalomalacia. CTA NECK: Aortic arch and proximal great vessels: Normal arch anatomy. Moderate arch calcification. Right common carotid, carotid bifurcation, and internal carotid artery: Calcified plaque at the bifur cation.There is 33% stenosis of the proximal right internal carotid artery relative to normal distal artery lumen diameter (NASCET criteria). Left common carotid, carotid bifurcation, and internal carotid artery: Calcified plaque at the bifurc ation.There is 22% stenosis of the proximal left internal carotid artery relative to normal distal ar brianne lumen diameter (NASCET criteria). Vertebral arteries: No significant plaque or stenosis. Mild calcification with mild stenosis at the o rigin of the right vertebral artery. Several focal calcified plaques in the vertebral arteries withou t significant stenosis. Other findings: Heterogeneous, multicystic left thyroid mass. Dental caries and periodontal disease. IMPRESSION: Focal acute infarct in the right parietal lobe near the vertex, as described in the prior MRI. No large vessel occlusion. No significant carotid or vertebral stenosis. Left thyroid mass, consider thyroid ultrasound for further characterization. Reviewed, dictated and finalized at location K.
--- NOTE | ~2023-01-13 | CT_ITS ---
EXAMINATION: CT thoracic spine wo con DATE: 01/13/2023 16:01 INDICATION: Back pain TECHNIQUE: Computed tomography (CT) of the thoracic spine was performed without intravenous contrast. Automated exposure control and iterative reconstruction technique were employed. The dose-length pro duct was 551.72 mGy-cm. COMPARISON: CT abdomen and pelvis dated 06/20/2022 FINDINGS: Upper thoracic kyphosis. 2 mm anterolisthesis C7 on T1. No change in a chronic mild central superior endplate compression fracture at T12 approximately 10% central vertebral body height loss. Interval i ncrease in now 25% anterior to central vertebral body height loss at a chronic L1 compression fractur e. No other acute fractures identified. Gradient of increasing disc height loss, mild at T2-T3 increa sing to moderate severity at T8-T9 and mild at T9-T10 and T10-T11. There is mild ballooning of the TM T 12 and T12-L1 disc space resulting from a compression fractures. No central canal stenosis. Severe bilateral facet osteoarthritis at T1-T2. Moderate facet osteoarthritis with right-sided predominance in the upper lumbar spine and mild facet osteoarthritis bilaterally in the lower thoracic spine. Ther e is mild neural foraminal stenosis at the left and right ventriculostomy mid to upper thoracic spine . Small sliding-type hiatal hernia. Mild bibasilar atelectasis. Atherosclerotic coronary artery calci fication and aortic valve calcific lesion. No pleural effusion. IMPRESSION: 1. Chronic compression fractures at T12 and L1, the latter with interval progression in vertebral bod y height loss since 06/20/2022. No acute fracture. 2. Moderate thoracic spondylosis. Reviewed, dictated and finalized at location A. IMPRESSION: 1. Chronic compression fractures at T12 and L1, the latter with interval progre ssion in vertebral body height loss since 06/20/2022. No acute fracture. 2. Moderate thoracic spondylosis.
--- NOTE | ~2023-01-13 | MR_ITS ---
EXAMINATION: MR brain/brain stem wo con DATE: 01/15/2023 13:21 INDICATION: Altered level of consciousness. TECHNIQUE: Magnetic resonance imaging (MRI) of the brain and brainstem was performed without intraven ous contrast. COMPARISON: Head CT 01/13/2023 FINDINGS: There is an acute infarct in the right frontoparietal region medially. There is old infarct in right temporal lobe. There are old infarcts in the right basal ganglia and right thalamus. There are scattered areas of nonspecific increased T2-weighted signal intensity in the cerebral white matte r, deep hanley nuclei, and roshan. There is no intracranial hemorrhage or abnormal mass lesion. The ventr icles are normal in size. The orbits are normal. The paranasal sinuses are clear. The mastoid air katt ls are normal. IMPRESSION: 1. Acute infarct in medial right frontoparietal region. 2. Old infarcts in right temporal lobe, the right basal ganglia, and right thalamus. 3. Extensive nonspecific cerebral white matter disease and disease of the deep hanley nuclei and roshan, which likely represents chronic small vessel ischemic disease. Reviewed, dictated and finalized at location A. IMPRESSION: 1. Acute infarct in medial right frontoparietal region. 2. Old infarcts in right temporal lobe, the right basal ganglia, and right thal amus. 3. Extensive nonspecific cerebral white matter disease and disease of the deep hanley nuclei and roshan, which likely represents chronic small vessel ischemic dis ease.
--- NOTE | ~2023-01-13 | US_ITS ---
EXAMINATION: US thyroid DATE: 01/17/2023 14:02 INDICATION: Thyroid mass on CT TECHNIQUE: Multiple ultrasound images of the thyroid were obtained. COMPARISON: None. FINDINGS: The right thyroid lobe measures 3.1 x 1.2 x 1.3 cm. The left thyroid lobe measures 5.1 x 1.7 x 2.5 c m. 4.0 x 1.3 x 3.7 cm predominantly solid isoechoic wider than tall mass with lobular margins and wi thout internal echogenic foci (TI-RADS 4, moderately suspicious , FNA if >=1.5 cm, annual followup is >=1 cm). There are 3 additional subcentimeter nodules in the right thyroid lobe, the highest grade a 6 mm TI RADS 4 nodule in the inferior right thyroid lobe. There is diffuse coarsened echotexture and increased vascular flow on color Doppler throughout both thyroid lobes. IMPRESSION: 1. Multinodular goiter including a 4.0 cm TI RADS 4 left thyroid mass which meets criteria for ultras ound-guided biopsy. Reviewed, dictated and finalized at location L. IMPRESSION: 1. Multinodular goiter including a 4.0 cm TI RADS 4 left thyroid mass which sal ts criteria for ultrasound-guided biopsy.
--- NOTE | ~2023-01-13 | XR_ITS ---
EXAMINATION: XR barium swallow modified DATE: 01/15/2023 09:04 INDICATION: Choking TECHNIQUE: Modified barium esophagram was performed by myself who administered fluoroscopy, in conju nction with speech pathologist who administered barium in varying consistencies as per speech patholo gist documentation. This was recorded on tape. A single fluoroscopic spot image was recorded. Fluoros copy exposure time was 4.0 minutes. The DAP for this procedure was 2.517 Gycm2. FINDINGS: A Zenker's diverticulum is noted. Oral stage: Adequate function. Pharyngeal phase: Reduced laryngeal elevation and reduced tongue base contraction. Laryngeal penetration: Present with thin/nectar. Aspiration: None. Laryngeal sensitivity: Absent. IMPRESSION: 1. Abnormal modified barium swallow. Please refer to speech pathologist findings and specific feeding recommendations. 2. Zenker's diverticulum. Reviewed, dictated and finalized at location A. IMPRESSION: 1. Abnormal modified barium swallow. Please refer to speech pathologist finding s and specific feeding recommendations. 2. Zenker's diverticulum.
--- NOTE | ~2023-01-13 | XR_ITS ---
EXAMINATION: XR hip BI 2V w AP pelvis DATE: 01/14/2023 16:32 INDICATION: Pelvic pain post fall TECHNIQUE: Anteroposterior view of the pelvis and anteroposterior and frog-leg lateral views of the l eft hip and anteroposterior and cross-table lateral views of the right hip and were obtained. COMPARISON: 06/20/2022 FINDINGS: Lower lumbar spine tilts towards the left as part of a nonvisualized lumbar levoscoliosis. Alignment is otherwise normal. No fracture or suspected avascular necrosis. 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 Moderate spondylosis in the visualized lower lumbar spine. Soft tissues are unremarkab le. IMPRESSION: 1. Mild bilateral hip and sacroiliac osteoarthritis. No acute osseous abnormality. Reviewed, dictated and finalized at location B. IMPRESSION: 1. Mild bilateral hip and sacroiliac osteoarthritis. No acute osseous abnormali ty.
--- NOTE | ~2023-01-13 | CT_ITS ---
EXAMINATION: CT brain wo con DATE: 01/13/2023 16:00 INDICATION: Fall with increasing weakness and dizziness TECHNIQUE: Computed tomography (CT) of the head was performed without intravenous contrast. Sagittal and coronal reconstructions were performed. The mA was adjusted according to patient size. Iterative reconstruction technique was employed. The dose-length product was 605.33 mGy-cm. COMPARISON: head CT dated 06/20/2022 FINDINGS: No fracture. No acute intracranial hemorrhage, acute infarction or abnormal extra axial fluid collect ion. Small regions of encephalomalacia in the right parieto-occipital region and right temporal lobe consistent with chronic infarcts. Small old lacunar infarcts at the bilateral thalami and right basal ganglia. Extensive scattered white matter hypoattenuation consistent with chronic small vessel ische fina disease. Symmetric prominence of the sulci consistent with mild age-appropriate diffuse cerebral volume loss. Ventricles are normal and symmetric. No mass/mass effect. Intracranial calcified cerebr al atherosclerosis is noted. The orbits, paranasal sinuses and mastoid air cells are normal. IMPRESSION: 1. No acute intracranial process. 2. 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 3. Age-related changes including mild diffuse volume loss and extensive scattered white matter hypoat tenuation consistent with chronic small vessel ischemic disease. Reviewed, dictated and finalized at location A. IMPRESSION: 1. No acute intracranial process. 2. 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 3. Age-related changes including mild diffuse volume loss and extensive scatter ed white matter hypoattenuation consistent with chronic small vessel ischemic d isease.
[2023-01-13 14:49] VITALS: BP 163/64; PULSE 76; RESP 16; TEMP 36.4; O2SAT 98
--- NOTE | 2023-01-13 14:56 | ED.GENADULT ---
HPI - General Adult General Chief complaint: Weakness Stated complaint: WEAKNESS History of Present Illness HPI narrative: 82-year-old female presented the ED for evaluation of generalized weakness. Patient states that today she has had increased weakness and decreased ability to ambulate. Patient reports this morning she went to sit on her porch and due to her weakness she was unable to get back inside. Daughter came to check on her and found the patient was still sitting on the porch. Patient states that she was unable to have breakfast. Patient reports that she did have a fall previously and injured her middle back. Family states the patient has been having increased difficulty taking care of herself at home and they feel the patient should be evaluated for potential custodial placement. They state that the fall the patient had was back in June. Related Data Allergies Allergy/AdvReac Type Severity Reaction Status Date / Time SHAQUILLE Inhibitors Allergy Unknown Unknown Verified 04/17/22 14:51 amlodipine Allergy Unknown Unknown Verified 04/17/22 14:51 amoxicillin Allergy Unknown Unknown Verified 04/17/22 14:51 atorvastatin Allergy Unknown Unknown Verified 04/17/22 14:51 ibuprofen Allergy Unknown Unknown Verified 04/17/22 14:51 meperidine Allergy Unknown Unknown Verified 04/17/22 14:51 Penicillins Allergy Unknown Unknown Verified 04/17/22 14:51 simvastatin Allergy Unknown Unknown Verified 04/17/22 14:51 codeine AdvReac Unknown N/V Verified 04/17/22 14:51 Review of Systems Review of Systems: All systems reviewed & are unremarkable except as noted in HPI and below PMFSH Past Medical History Medical History Anxiety BMI 23.0-23.9, adult BMI 28.0-28.9,adult Hyperlipidemia Hypertension IBS (irritable bowel syndrome) Surgical History Surgical History H/O knee surgery H/O: hysterectomy No pertinent past surgical history Family History Family History Father Family history of malignant neoplasm Mother Family history of coronary artery disease Diabetes mellitus Sibling No problems noted. 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 HEAD: normocephalic, atraumatic. EYES: PERRLA/EOMI, conjunctivae clear. NOSE: Normal no drainage NECK: Supple. No adenopathy, no masses. RESPIRATORY: Airway patent, respirations nonlabored. Clear to auscultation bilaterally, no rales, rhonchi, wheezing. CARDIOVASCULAR: Regular rate and rhythm without murmurs rubs or gallops. ABDOMINAL: Soft, nontender, nondistended, normal bowel sounds MUSCULOSKELETAL: Moves all extremities. Strength/ROM intact, No edema, No calf tenderness. NEURO: Alert. Cranial nerves II through XII intact. Grossly intact SKIN: Warm, dry. Normal Color Course Course Emergency Course: 82-year-old female presented the ED for evaluation of increased weakness. Patient was afebrile.. No significant abnormalities on her CMP. Patient was found to have a urinary tract infection. Head neck and thoracic spine CT showed no acute findings. Patient was started on Rocephin for her urinary tract infection with urine and blood cultures pending. Patient and family were updated on the plan for admission. Case is discussed with hospitalist and patient was accepted for admission. Kvng arechiga
[2023-01-13 14:58] VITALS: PULSE 79
[2023-01-13 15:51] LABS: INR 1.1; Prothrombin Time 14.2 Seconds (11.1-14.7)
[2023-01-13 15:52] LABS: Alanine Aminotransferase 15 U/L (6-35); Albumin Level 3.2 g/dL (3.5-5.1); Alkaline Phosphatase 95 U/L (38-126); Anion Gap 4 mmol/L (8-16); Aspartate Amino Transferase 25 U/L (14-36); Bilirubin,Total 0.5 mg/dL (0.2-1.3); Blood Urea Nitrogen 16 mg/dL (7-17); Calcium 8.4 mg/dL (8.4-10.2); Carbon Dioxide 28 mmol/L (22-30); Chloride 106 mmol/L (98-107); Estimated CRCL calculation 50 ml/min; Estimated Glomerular Filt Rate > 60; Glucose 87 mg/dL (65-110); Partial Thromboplastin Time 24.1 SECONDS (22.3-36.8); Potassium 3.5 mmol/L (3.4-5.0); Sodium 138 mmol/L (137-145)
[2023-01-13 16:01] LABS: Appearance Urine Cloudy (Clear); Bacteria Urine 4+ /hpf; Bilirubin Urine Negative (Negative); Blood Urine Negative (Negative); Color Urine Yellow (Yellow); Glucose Urine UA Negative (Negative); Ketones Urine Negative (Negative); Leukocyte Esterase Ur 3+ LEU/UL (Negative); Need Manual Microscopic Reviewed; Nitrate Urine Negative (Negative); Protein Urine Negative (Negative); RBC Urine 0-2 /hpf (0-2); Specific Grav Ur 1.017 (1.001-1.035); Squamous Epithelial Cell Urine None seen /hpf (Few); WBC Urine >100 /hpf; pH Urine 6.5 (5.0-9.0)
[2023-01-13 16:12] LABS: Add Urine Microscopic? YES
[2023-01-13 16:19] LABS: Lactic Acid Reflex 0.9 mmol/L (0.7-2.0)
[2023-01-13 16:20] LABS: Influenza A QL RT-PCR Negative (Negative); Influenza B QL RT-PCR Negative (Negative); RSV RNA, RT-PCR Negative (Negative); SARS-CoV-2 RNA PCR Negative (Negative)
[2023-01-13 17:19] VITALS: BP 162/71; PULSE 84; RESP 18; O2SAT 100
[2023-01-13 18:31] LABS: Basophils Absolute Auto 0.1 K/mm3 (0.0-0.1); Basophils Percent Auto 0.8 % (0.2-1.2); Eosinophils Absolute Auto 0.1 K/mm3 (0-0.3); Eosinophils Percent Auto 1.7 % (0-4.4); Hematocrit 38.1 % (37.0-47.0); Hemoglobin 11.9 g/dL (12.0-15.0); Immature Granulocyte Absolute 0.01 K/mm3 (0.00-0.031); Immature Granulocyte Percent A 0.1 % (0-0.5); Lymphocytes Absolute Auto 2.57 K/mm3 (0.9-3.2); Lymphocytes Percent Auto 34.5 % (18.3-44.2); Mean Corpuscular HGB Conc 31.2 g/dl (32-36); Mean Corpuscular Hemoglobin 28.8 pg (26-34); Mean Corpuscular Volume 92.3 fl (80-100); Mean Platelet Volume 10.4 fl (7.4-10.4); Monocytes Absolute Auto 0.6 K/mm3 (0.1-0.6); Monocytes Percent Auto 7.8 % (2.6-8.5); Neutrophils Absolute Auto 4.1 K/mm3 (1.3-6.7); Neutrophils Percent Auto 55.1 % (45.5-73.1); Platelet Count Result 240 k/mm3 (150-375); Red Blood Count 4.13 M/mm3 (4.2-5.4); Red Cell Distribution Width 14.2 % (11.5-14.5); White Blood Count 7.5 K/mm3 (4.5-10.0)
[2023-01-13 21:00] VITALS: PULSE 74; RESP 18; O2SAT 96
--- NOTE | 2023-01-13 21:15 | PM.IMHP ---
H&P: HPI History of Present Illness Date/Time: 01/13/23 21:15 Chief Complaint: Weakness Narrative: This is an 82-year-old female patient who lives home alone. She has been having some memory issues and the daughter goes over to her house every day to monitor the patient. The patient's daughter also has cameras on the outside the house as well as inside to monitor the patient. The patient is very forgetful. The patient typically sits out on her porch every day so today she sat outside for several hours and did not get up out of her chair. The patient was too weak and was not able to ambulate. According to the daughter the patient did not fall. The patient was too weak to go back inside her house. The daughter went to the patient's house and found her still sitting in the chair on the porch. The patient had not even had breakfast. Previously the patient did have a fall and injured her middle back. The daughter and her sister were stating that the patient is having increased difficulty taking care of herself at home and they feel that the patient needed to be evaluated for potential assisted placement. Her last fall was back in June of this year. Her white count is normal. Hemoglobin 11.9. The patient was found to be positive for UTI with 3+ leukocytes and greater than 100 wbc's and 4+ bacteria. Influenza A/B RSV and COVID are all negative. Thoracic spine CT was read as1. Chronic compression fractures at T12 and L1, the latter with interval progression in vertebral body height loss since 06/20/2022. No acute fracture. 2. Moderate thoracic spondylosis. Dextrose cervical spine CT was read by radiology 1. No acute osseous abnormality. 2. Severe cervical spondylosis with developmental anterior and posterior fusion at C5-C6. Head CT was read as 1. No acute intracranial process. 2. 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 3. Age-related changes including mild diffuse volume loss and extensive scattered white matter hypoattenuation consistent with chronic small vessel ischemic disease. She was given Rocephin. The patient is being admitted to observation status on the date of service of 01/13/2023. Review of Systems Review of Systems: All systems reviewed & are unremarkable except as noted in HPI and below Constitutional: Constitutional: Reports as per HPI and Reports no additional constitutional complaints Eyes: Eyes: Reports as per HPI and Reports no additional eye complaints ENT: Reports system reviewed and no additional complaints, except as documented and Reports Normal hearing present Cardiovascular: Cardiovascular: Reports no additional cardiovascular complaints Respiratory: Respiratory: Reports no additional respiratory complaints and Reports no additional respiratory complaints Gastrointestinal: Gastrointestinal: Reports as per HPI and Reports no additional gastrointestinal complaints Musculoskeletal: Musculoskeletal: Reports no additional musculoskeletal complaints Integumentary/Breasts: Skin/Breast: Reports system reviewed and no additional complaints, except as docu and Reports as per HPI Neurologic: Reports system reviewed and no additional complaints, except as documented, Reports as per HPI and Reports Normal hearing present Psychiatric: Psychiatric: Reports no additional psychiatric complaints and Reports as per HPI Endocrine: Endocrine: Reports no additional endocrine complaints Hematologic/Lymphatic: Hematologic/Lymphatic: Reports no additional hematologic/lymphatic complaints Allergic/Immunologic: Allergic/Immunologic: Reports no additional allergic/immunologic complaints [facility] Past Medical History Medical History (Updated 01/13/23 @ 21:42 by Cecilia Lopez NP) Anxiety BMI 23.0-23.9, adult BMI 28.0-28.9,adult Dementia Hyperlipidemia Hypertension IBS (irritable bowel syndro
[2023-01-13 21:57] VITALS: BMI 24.0
[2023-01-13 22:00] VITALS: BP 134/52; PULSE 74; RESP 18; TEMP 36.4; O2SAT 96
[2023-01-14 06:00] VITALS: BP 141/65; PULSE 77; RESP 20; TEMP 37; O2SAT 97
[2023-01-14 06:01] LABS: Basophils Absolute Auto 0.1 K/mm3 (0.0-0.1); Basophils Percent Auto 0.8 % (0.2-1.2); Eosinophils Absolute Auto 0.1 K/mm3 (0-0.3); Eosinophils Percent Auto 1.8 % (0-4.4); Hematocrit 35.6 % (37.0-47.0); Immature Granulocyte Absolute 0.02 K/mm3 (0.00-0.031); Immature Granulocyte Percent A 0.3 % (0-0.5); Lymphocytes Absolute Auto 1.99 K/mm3 (0.9-3.2); Lymphocytes Percent Auto 30.7 % (18.3-44.2); Mean Corpuscular HGB Conc 30.9 g/dl (32-36); Mean Corpuscular Hemoglobin 29.1 pg (26-34); Mean Corpuscular Volume 94.2 fl (80-100); Mean Platelet Volume 10.2 fl (7.4-10.4); Monocytes Absolute Auto 0.6 K/mm3 (0.1-0.6); Monocytes Percent Auto 9.1 % (2.6-8.5); Neutrophils Absolute Auto 3.7 K/mm3 (1.3-6.7); Neutrophils Percent Auto 57.3 % (45.5-73.1); Platelet Count Result 210 k/mm3 (150-375); Red Blood Count 3.78 M/mm3 (4.2-5.4); Red Cell Distribution Width 14.1 % (11.5-14.5); White Blood Count 6.5 K/mm3 (4.5-10.0)
[2023-01-14 06:14] LABS: Lactic Acid Reflex 0.9 mmol/L (0.7-2.0)
[2023-01-14 06:15] LABS: Alanine Aminotransferase 14 U/L (6-35); Albumin Level 2.7 g/dL (3.5-5.1); Alkaline Phosphatase 89 U/L (38-126); Anion Gap 4 mmol/L (8-16); Aspartate Amino Transferase 23 U/L (14-36); Bilirubin,Total 0.4 mg/dL (0.2-1.3); Blood Urea Nitrogen 12 mg/dL (7-17); Calcium 8.4 mg/dL (8.4-10.2); Carbon Dioxide 23 mmol/L (22-30); Chloride 110 mmol/L (98-107); Estimated CRCL calculation 52 ml/min; Estimated Glomerular Filt Rate > 60; Glucose 90 mg/dL (65-110); Magnesium 2.1 mg/dL (1.6-2.3); Potassium 3.7 mmol/L (3.4-5.0); Sodium 137 mmol/L (137-145)
[2023-01-14 06:44] LABS: Thyroid Stimulating Hormone Reflex 0.841 uIU/mL (0.465-4.68)
[2023-01-14] MEDS: ALPRAZolam (*CRX) 0.25 MG TABLET PO (09:13)
--- NOTE | 2023-01-14 11:05 | PM.IMPN ---
Progress Note: A&P Assessment and Plan (1) Acute UTI: Code(s): N39.0 - Urinary tract infection, site not specified Status: Acute Assessment and Plan: Being treated with Rocephin, urine and blood cultures pending (2) Debility: Code(s): R53.81 - Other malaise Status: Acute Assessment and Plan: Generalized weakness unable to sit on edge of bed or stand on her own, was unable to get out of a chair which is what prompted visit to the hospital. Family interested in placement upon discharge. (3) Dementia: Code(s): F03.90 - Unspecified dementia, unspecified severity, without behavioral disturbance, psychotic disturbance, mood disturbance, and anxiety Status: Acute Assessment and Plan: Usually able to take care of self at home with reminders but has not been able to do so well recently (4) Anxiety: Code(s): F41.9 - Anxiety disorder, unspecified Status: Acute Assessment and Plan: P.r.n. alprazolam (5) Hypertension: Code(s): I10 - Essential (primary) hypertension Status: Acute Assessment and Plan: Patient does not take medication as previously prescribed. Blood pressure reviewed on 01/14 without need for immediate intervention. (6) Anemia: Code(s): D64.9 - Anemia, unspecified Status: Acute Assessment and Plan: Mild and asymptomatic Plan Treat active infection, work with PT OT, work with Case Management for placement. Time Spent With Patient Time: Over 20 minutes at bedside speaking with the family regarding patient's current condition and past medical history. Patient is confused does not recall her past history. Chart review also for history and planning Time with patient: 25 - 35 minutes Subjective Date/time seen: 01/14/23 11:05 Interval history: 01/14: This is an 82-year-old female patient who was admitted to the hospital due to weakness debility and confusion in the setting of UTI. Patient usually resides at home with family checking on her but was unable to get up out of a chair outside yesterday for over 5 hours then was unable to get up with assistance of family so EMS had to be called. Patient appears pleasantly confused today but could not stand or sit on the edge of the bed with physical therapy today. Family is discussing facility placement for more assistance with patient care after this hospitalization. Review of Systems Review of Systems: ROS unobtainable: Yes unobtainable due to mental status (pleasantly confused) Exam Narrative: GENERAL: Chronically ill appearing 82 year old female patient confused, initially asleep HEENT: Pupils are equally round and briskly reactive to light. Extraocular muscles are intact. NECK: The patient has no noted JVD. No adenopathy is appreciated. CHEST/LUNGS: Lungs are diminished bilaterally without rhonchi, rales, or wheezes. HEART: The patient has a regular rate and rhythm. No murmurs, rubs, or gallops are appreciated. Distal pulses are 2+. No carotid bruits appreciated. ABDOMEN: The patient?s abdomen is soft, nontender, and nondistended. Bowel sounds are positive. EXTREMITIES: The patient has no peripheral edema. SKIN: The patient?s skin is warm and dry, without rashes or lesions. PSYCHIATRIC: The patient has normal mental status and has an appropriate affect. NEUROLOGIC: There are no gross deficits to the cranial nerves. Moves all extremities equally, 3-4/5 strength Objective Data Vital Signs Vital Signs: Vital Signs - 24 hr 01/13/23 14:49 01/13/23 14:58 01/13/23 17:19 Temperature 36.4 C Pulse Rate 76 79 84 Respiratory Rate 16 18 Blood Pressure 163/64 H 162/71 H Pulse Oximetry 98 100 Oxygen Delivery 01/13/23 22:00 01/13/23 21:00 01/14/23 06:00 Temperature 36.4 C 37.0 C Pulse Rate 74 74 77 Respiratory Rate 18 18 20 Blood Pressure 134/52 L 141/65 H Pulse Oximetry 96 96 97 Oxygen Delivery Room Air 01/14/23 09:30 01/14/23 08:00
[2023-01-14 14:00] VITALS: BP 138/70; PULSE 69; RESP 18; TEMP 37.1; O2SAT 98
[2023-01-14] MEDS: ONDANSETRON INJ 4 MG/2 ML VIAL IV PUSH (14:51)
[2023-01-14 15:48] VITALS: BMI 10.0
[2023-01-14 20:00] VITALS: PULSE 109; RESP 16; O2SAT 95
[2023-01-14 21:33] VITALS: BP 163/60; PULSE 109; RESP 16; TEMP 36.1; O2SAT 95
--- NOTE | 2023-01-15 | ECHO_ITS ---
Patient Info Name: Gege Jewell Age: 82 years : 1940 Gender: Female Ht: 60 in Wt: 123 lbs BSA: 1.55 m2 HR: 78 bpm BP: 148 / 51 mmHg Heart Rhythm: Tachycardia Technical Quality: Good Exam Date: 01/15/2023 3:40 PM Exam Location: [facility] Patient Status: Inpatient Admit Date: 01/13/2023 Staff Ordering Physician: Dawood Centeno APRN Customer Manager: Ronnie Bhandari RDCS Attending Provider: Larry Ortiz MD Referring Physician: Jacobo BENDER; Exam Type: CA echo doppler color flow Study Info Indications - stroke Complete two-dimensional, color flow and Doppler transthoracic echocardiogram is performed. Summary 1. Complete two-dimensional, color flow and Doppler transthoracic echocardiogram is performed. 2. Left ventricular chamber dimension is normal. 3. Left ventricular systolic function is normal, estimated at 65-70%. 4. There is mildly increased left ventricular wall thickness. 5. The left ventricular diastolic function is grade I diastolic dysfunction. 6. Left atrial chamber dimension is mildly enlarged. 7. There is mild aortic valve stenosis with a peak velocity of 199 cm/s, mean gradient of 7 mmHg, and aortic valve area of 2.4 cm2. 8. The mitral valve annulus is mildly calcified. 9. There is mild tricuspid valve regurgitation. 10. Mild pulmonary hypertension, estimated pulmonary arterial systolic pressure is 37 mmHg. 11. There is mild pulmonic regurgitation. Left Ventricle Left ventricular chamber dimension is normal. Left ventricular systolic function is normal, estimated at 65-70%. There is mildly increased left ventricular wall thickness. The left ventricular diastolic function is grade I diastolic dysfunction. Right Ventricle Right ventricular chamber dimension is normal. Right ventricular systolic function is normal. Left Atria Left atrial chamber dimension is mildly enlarged. Right Atria Right atrial chamber dimension is normal. Atrial Septum Intact interatrial septum visualized by color flow imaging. Aortic Valve There is mild aortic valve stenosis with a peak velocity of 199 cm/s, mean gradient of 7 mmHg, and aortic valve area of 2.4 cm2. There is trace aortic valve regurgitation. There is mild aortic valve calcification. Pulmonic Valve The pulmonic valve is normal. There is no pulmonic valve stenosis. There is mild pulmonic regurgitation. Mitral Valve There is no mitral valve stenosis. There is trace mitral valve regurgitation. The mitral valve annulus is mildly calcified. Tricuspid Valve The tricuspid valve leaflets are normal. There is no significant tricuspid valve stenosis. There is mild tricuspid valve regurgitation. Mild pulmonary hypertension, estimated pulmonary arterial systolic pressure is 37 mmHg. Pericardium/Pleural The pericardium appears normal. There is no pericardial effusion. Inferior Vena Cava Normal inferior vena cava with <50% collapse upon inspiration consistent with elevated right atrial pressure, 10 mmHg. Aorta The aortic root size at the sinus of Valsalva is normal. Left Ventricular Outflow Tract Name Value Normal LVOT 2D LVOT Diameter 2.1 cm LVOT Doppler LVOT Peak Gradient 5 mmHg
[2023-01-15 05:58] VITALS: BP 138/51; PULSE 78; RESP 14; TEMP 36.8; O2SAT 94
[2023-01-15 07:26] LABS: Hematocrit 35.9 % (37.0-47.0); Hemoglobin 11.1 g/dL (12.0-15.0); Mean Corpuscular HGB Conc 30.9 g/dl (32-36); Mean Corpuscular Hemoglobin 28.4 pg (26-34); Mean Corpuscular Volume 91.8 fl (80-100); Mean Platelet Volume 10.4 fl (7.4-10.4); Platelet Count Result 216 k/mm3 (150-375); Red Blood Count 3.91 M/mm3 (4.2-5.4); Red Cell Distribution Width 14.2 % (11.5-14.5); White Blood Count 8.3 K/mm3 (4.5-10.0)
[2023-01-15 07:33] LABS: Potassium 3.9 mmol/L (3.4-5.0)
[2023-01-15 07:35] LABS: Anion Gap -2 mmol/L (8-16); Blood Urea Nitrogen 13 mg/dL (7-17); Calcium 8.1 mg/dL (8.4-10.2); Carbon Dioxide 28 mmol/L (22-30); Chloride 107 mmol/L (98-107); Estimated CRCL calculation 38 ml/min; Estimated Glomerular Filt Rate > 60; Glucose 100 mg/dL (65-110); Sodium 133 mmol/L (137-145)
--- NOTE | 2023-01-15 09:02 | PM.IMPN ---
Progress Note: A&P Assessment and Plan (1) Acute UTI: Code(s): N39.0 - Urinary tract infection, site not specified Status: Acute Assessment and Plan: 01/14: Being treated with Rocephin, urine and blood cultures pending 01/15: Urine culture returns negative. However, due to confusion and convincing appearing UA will continue Rocephin at this time (2) Debility: Code(s): R53.81 - Other malaise Status: Acute Assessment and Plan: 01/14: Generalized weakness unable to sit on edge of bed or stand on her own, was unable to get out of a chair which is what prompted visit to the hospital. Family interested in placement upon discharge 01/15: Patient consistently leaning to the left and left upper extremity seems weaker than right. Apparent old right intracranial infarcts on CT scan. Ordered MRI. (3) Dysphagia: Code(s): R13.10 - Dysphagia, unspecified Status: Acute Assessment and Plan: 01/15: Nursing staff identified patient choking on water yesterday. Barium swallow completed showing that patient requires moderately thickened liquids honey consistency but able to eat food. (4) Dementia: Code(s): F03.90 - Unspecified dementia, unspecified severity, without behavioral disturbance, psychotic disturbance, mood disturbance, and anxiety Status: Acute Assessment and Plan: Usually able to take care of self at home with reminders but has not been able to do so well recently (5) Anxiety: Code(s): F41.9 - Anxiety disorder, unspecified Status: Acute Assessment and Plan: P.r.n. alprazolam (6) Hypertension: Code(s): I10 - Essential (primary) hypertension Status: Acute Assessment and Plan: Patient does not take medication as previously prescribed. Blood pressure reviewed on 01/15 without need for immediate intervention. (7) Anemia: Code(s): D64.9 - Anemia, unspecified Status: Acute Assessment and Plan: Mild and asymptomatic Plan MRI PT/OT Continue antibiotics Thickened liquids Work with case management regarding placement Time Spent With Patient Time with patient: 25 - 35 minutes Subjective Date/time seen: 01/15/23 09:02 Interval history: 01/14: This is an 82-year-old female patient who was admitted to the hospital due to weakness debility and confusion in the setting of UTI. Patient usually resides at home with family checking on her but was unable to get up out of a chair outside yesterday for over 5 hours then was unable to get up with assistance of family so EMS had to be called. Patient appears pleasantly confused today but could not stand or sit on the edge of the bed with physical therapy today. Family is discussing facility placement for more assistance with patient care after this hospitalization. 01/15: Nursing staff made me aware that patient's family did not know about apparent old infarcts on CT scan. Patient is weak and confused. She leans in the bed significantly to the left and is having trouble working with therapy. She has difficulty swallowing thin fluids and Barium study shows she needs honey thick liquids Will MRI brain today. Review of Systems Review of Systems: ROS unobtainable: Yes unobtainable due to mental status (pleasantly confused) Exam Narrative: GENERAL: Chronically ill appearing 82 year old female patient confused continues to lean significantly to the left side of the bed despite being straight up multiple times HEENT: Pupils are equally round and briskly reactive to light. Extraocular muscles are intact. NECK: The patient has no noted JVD. No adenopathy is appreciated. CHEST/LUNGS: Lungs are diminished bilaterally without rhonchi, rales, or wheezes. HEART: The patient has a regular rate and rhythm. No murmurs, rubs, or gallops are appreciated. Distal pulses are 2+. No carotid bruits appreciated. ABDOMEN: The patient?s abdomen is soft, nontender, and nondistended. Bowel sound
--- NOTE | 2023-01-15 09:55 | PCSTNOTE ---
Please refer to the Modified Barium Swallow Evaluation in the EMR.
[2023-01-15] MEDS: LORazepam INJ (*CRX) 2 MG/ML VIAL 0.5 MG IV PUSH (12:36)
[2023-01-15] MEDS: ONDANSETRON INJ 4 MG/2 ML VIAL IV PUSH (12:37)
[2023-01-15] MEDS: ENOXAPARIN 40 MG/0.4 ML SYRINGE SUB-Q (12:38)
[2023-01-15 14:40] VITALS: BP 148/51; PULSE 78; RESP 16; TEMP 36.9; O2SAT 96
[2023-01-15 20:00] VITALS: PULSE 78; RESP 16; O2SAT 96
--- NOTE | 2023-01-15 20:42 | PC.NURSE ---
This pt continues to be confused and exhibit left side weakness and leaning. Requested MRI. Ativan given to calm pt who is crying over not being able to ambulate and to relax pt for MRI. Provider ordered. Results obtained and communicated to daughter. Interventions for stroke ordered. Pt still very drowsy and unable to swallow PO meds. Will give asa when pt more alert and able to cooperate. Asa not to floor, requested dose not available in pyxis. Pt unable to understand diagnosis and continues to request to get out of bed, but less sad. Diverted attention with TV. Notified import/export agent RN who stated she would obtain and give asa.
[2023-01-15] MEDS: ASPIRIN 81 MG CHEWABLE TABLET 324 MG PO (21:03)
[2023-01-15 22:00] VITALS: BP 143/62; PULSE 70; RESP 16; TEMP 35.9; O2SAT 94
--- NOTE | 2023-01-16 | ECHO_ITS ---
Patient Info Name: Gege Jewell Age: 82 years : 1940 Gender: Female Ht: 60 in Wt: 123 lbs BSA: 1.55 m2 HR: 96 bpm Technical Quality: Good Exam Date: 01/16/2023 3:11 PM Exam Location: [facility] Exam Room: [facility] Patient Status: Inpatient Admit Date: 01/15/2023 Staff Ordering Physician: Dawood Centeno APRN Jig Bore Tool Maker: Nereida Montero RDCS Attending Provider: Larry Ortiz MD Referring Physician: Jacobo BENDER; Exam Type: CA echo limited w bubble study Study Info Indications - stroke Limited two-dimensional transthoracic echocardiogram is performed with agitated saline. Contrast/Agitated Saline Contrast/Ag. Saline: Agitated Saline Amount: --- ml Administered By: Sultana Wang RDCS Existing IV Access: Yes IV Access Condition: patent with no signs of infiltration Summary 1. Intact interatrial septum visualized by agitated saline imaging. Atrial Septum Intact interatrial septum visualized by agitated saline imaging. Report Signatures
[2023-01-16 06:00] VITALS: BP 155/68; PULSE 62; RESP 16; TEMP 35.7; O2SAT 95
[2023-01-16 06:40] LABS: Hematocrit 39.7 % (37.0-47.0); Hemoglobin 11.8 g/dL (12.0-15.0); Mean Corpuscular HGB Conc 29.7 g/dl (32-36); Mean Corpuscular Hemoglobin 28.4 pg (26-34); Mean Corpuscular Volume 95.7 fl (80-100); Mean Platelet Volume 10.4 fl (7.4-10.4); Platelet Count Result 204 k/mm3 (150-375); Red Blood Count 4.15 M/mm3 (4.2-5.4); White Blood Count 7.4 K/mm3 (4.5-10.0)
[2023-01-16 07:11] LABS: Anion Gap 5 mmol/L (8-16); Blood Urea Nitrogen 12 mg/dL (7-17); Calcium 8.7 mg/dL (8.4-10.2); Carbon Dioxide 23 mmol/L (22-30); Chloride 108 mmol/L (98-107); Estimated CRCL calculation 44 ml/min; Estimated Glomerular Filt Rate > 60; Glucose 86 mg/dL (65-110); Sodium 136 mmol/L (137-145)
[2023-01-16 07:49] LABS: Cholesterol 199 mg/dL (0-200); HDL Direct 54 mg/dL; Triglycerides 86 mg/dL (<150)
[2023-01-16 08:00] LABS: LDL Cholesterol Direct 115 mg/dL
[2023-01-16] MEDS: ASPIRIN 81 MG CHEWABLE TABLET PO (08:52)
--- NOTE | 2023-01-16 09:52 | PM.IMPN ---
Progress Note: A&P Assessment and Plan (1) Acute ischemic right MCA stroke: Code(s): I63.511 - Cerebral infarction due to unspecified occlusion or stenosis of right middle cerebral artery Status: Acute Assessment and Plan: 01/16: Newly identified stroke area on MRI medial right frontoparietal region. Prior areas of stroke also identified. Started aspirin. Patient is allergic to statins. Consult Neurology. (2) Acute UTI: Code(s): N39.0 - Urinary tract infection, site not specified Status: Acute Assessment and Plan: 01/14: Being treated with Rocephin, urine and blood cultures pending 01/15: Urine culture returns negative. However, due to confusion and convincing appearing UA will continue Rocephin at this time 01/16: discontinue antibiotics, resolved (3) Debility: Code(s): R53.81 - Other malaise Status: Acute Assessment and Plan: 01/14: Generalized weakness unable to sit on edge of bed or stand on her own, was unable to get out of a chair which is what prompted visit to the hospital. Family interested in placement upon discharge 01/15: Patient consistently leaning to the left and left upper extremity seems weaker than right. Apparent old right intracranial infarcts on CT scan. Ordered MRI. 01/16: New area of stroke identified. Neurology consulted and PT/OT updated. (4) Dysphagia: Code(s): R13.10 - Dysphagia, unspecified Status: Acute Assessment and Plan: 01/15: Nursing staff identified patient choking on water yesterday. Barium swallow completed showing that patient requires moderately thickened liquids honey consistency but able to eat food. 01/16: Stroke identified on MRI. Patient is tolerating soft diet with moderately thickened liquids. (5) Dementia: Code(s): F03.90 - Unspecified dementia, unspecified severity, without behavioral disturbance, psychotic disturbance, mood disturbance, and anxiety Status: Acute Assessment and Plan: Usually able to take care of self at home with reminders but has not been able to do so well recently 01/16: Will require placement due to new acute ischemic stroke with left-sided weakness and need for diet alterations relating to dysphagia. (6) Anxiety: Code(s): F41.9 - Anxiety disorder, unspecified Status: Acute Assessment and Plan: P.r.n. alprazolam (7) Hypertension: Code(s): I10 - Essential (primary) hypertension Status: Acute Assessment and Plan: Patient does not take medication as previously prescribed. Blood pressure reviewed on 01/16 without need for immediate intervention. (8) Anemia: Code(s): D64.9 - Anemia, unspecified Status: Acute Assessment and Plan: Mild and asymptomatic Plan neurology consult PT OT work with Case Management on placement upon discharge Time Spent With Patient Time with patient: Greater than 35 minutes Subjective Date/time seen: 01/16/23 09:52 Interval history: 01/14: This is an 82-year-old female patient who was admitted to the hospital due to weakness debility and confusion in the setting of UTI. Patient usually resides at home with family checking on her but was unable to get up out of a chair outside yesterday for over 5 hours then was unable to get up with assistance of family so EMS had to be called. Patient appears pleasantly confused today but could not stand or sit on the edge of the bed with physical therapy today. Family is discussing facility placement for more assistance with patient care after this hospitalization. 01/15: Nursing staff made me aware that patient's family did not know about apparent old infarcts on CT scan. Patient is weak and confused. She leans in the bed significantly to the left and is having trouble working with therapy. She has difficulty swallowing thin fluids and Barium study shows she needs honey thick liquids Will MRI brain today. 01/16: MRI yesterday shows acute stroke
--- NOTE | 2023-01-16 09:53 | WPDNEURCNPN ---
Assessment and Plan Assessment and plan (1) Acute ischemic right MCA stroke: Code(s): I63.511 - Cerebral infarction due to unspecified occlusion or stenosis of right middle cerebral artery Status: Acute (2) Dysphagia: Code(s): R13.10 - Dysphagia, unspecified Status: Acute (3) Dementia: Code(s): F03.90 - Unspecified dementia, unspecified severity, without behavioral disturbance, psychotic disturbance, mood disturbance, and anxiety Status: Acute (4) Hypertension: Code(s): I10 - Essential (primary) hypertension Status: Acute (5) Acute UTI: Code(s): N39.0 - Urinary tract infection, site not specified Status: Acute (6) Hyperlipidemia: Code(s): E78.5 - Hyperlipidemia, unspecified Status: Acute Plan Gege Jewell is a 82 year old female with a history of hyperlipidemia, hypertension, IBS presenting due to concerns for generalized weakness. More specifically, noted to have left sided weakness and dysphagia during admission. She was ultimately found to have acute right frontoparietal stroke. Etiology is unclear. - CTA brain/carotid - Echo was done but without bubble study -- will need bubble study to evaluate for shunt - Start Aspirin, may need to add Plavix based on CTA results (if there is evidence of intracranial stenosis) - If CTA is unrevealing, may need to consider cardiology consult for further evaluation of possible cardioembolic etiology of stroke - Start statin, goal LDL <70 Consult date: 01/16/23 Reason for consult: Acute stroke HPI: Gege Jewell is a 82 year old female with a history of hyperlipidemia, hypertension, IBS presenting due to concerns for generalized weakness. Patient lives alone. She has been having difficulty taking care of herself. Daughter found patient at home confused, and weak throughout. She was taken to [place] ED where her EKG showed sinus rhythm. CT head showed chronic old infarcts in the right temporal lobe, right parieto-occipital region, and small old lacunar infarcts at the bilateral thalami and right basal ganglia. She was also found to have a UTI. She was started on Rocephin and subsequently admitted. During admission, patient was noted to have weakness on the left side and also had dysphagia. MRI brain was done which showed acute infarct in the right frontoparielta region. She has had an echocardiogram done that showed EF 65-70% and no clot. Bubble study was not done. Her LDL from this admission is 115. A1c has not been checked. She does not have any aspirin in her medication list and she is not on a statin. Review of Systems Constitutional: Constitutional: Denies chills, Denies fever(s) and Denies weight loss Eyes: Eyes: Denies diplopia and Denies loss of vision ENT: Denies dizziness, Reports hearing loss and Denies tinnitus Cardiovascular: Cardiovascular: Denies chest pain, Denies syncope and Denies dyspnea Respiratory: Respiratory: Denies cough, Denies dyspnea and Denies wheezing Gastrointestinal: Gastrointestinal: Denies abdominal pain, Denies change in bowel habits and Denies vomiting Genitourinary: Genitourinary: Denies urinary incontinence Musculoskeletal: Musculoskeletal: Denies arthralgias and Denies joint swelling Integumentary/Breasts: Skin/Breast: Denies new lesions and Denies rash Neurologic: Reports as per HPI, Denies dizziness, Denies syncope and Denies loss of vision Psychiatric: Psychiatric: Denies anxiety and Denies depression Endocrine: Endocrine: Denies cold intolerance and Denies heat intolerance Hematologic/Lymphatic: Hematologic/Lymphatic: Denies easy bleeding and Denies easy bruising Allergic/Immunologic: Allergic/Immunologic: Denies no additional allergic/immunologic complaints and Denies wheezing PMFSH Past Medical History Medical History Anxiety BMI 23.0-23.9, adult BMI 28.0-28.9,adult Dementia Hyperlipidemia Hypertensio
--- NOTE | 2023-01-16 12:22 | PCPTNOTE ---
On 01/16/23, the student, JUDD Corona, provided care and completed [facility] documentation on this patient. I have reviewed the student's documentation and agree with the findings.
[2023-01-16] MEDS: ENOXAPARIN 40 MG/0.4 ML SYRINGE SUB-Q (13:38)
[2023-01-16 14:39] VITALS: BP 147/74; PULSE 100; RESP 16; TEMP 36.8; O2SAT 96
[2023-01-16] MEDS: EZETIMIBE 10 MG TABLET PO (15:53)
[2023-01-16] MEDS: LORazepam INJ (*CRX) 2 MG/ML VIAL 0.5 MG IV PUSH (16:35)
--- NOTE | 2023-01-16 17:13 | PC.NURSE ---
I have reviewed and agree with Danielle ASHFORD's charting.
[2023-01-16 19:20] LABS: Hemoglobin A1C 5.1 % (<5.7)
[2023-01-16 22:00] VITALS: BP 151/73; PULSE 75; RESP 20; TEMP 35.9; O2SAT 95
[2023-01-17] MEDS: ALPRAZolam (*CRX) 0.25 MG TABLET PO ×2 (01:27→09:15)
[2023-01-17 06:00] VITALS: BP 150/62; PULSE 74; RESP 16; TEMP 36.2; O2SAT 96
[2023-01-17 06:19] LABS: Hematocrit 35.6 % (37.0-47.0); Hemoglobin 11.3 g/dL (12.0-15.0); Mean Corpuscular HGB Conc 31.7 g/dl (32-36); Mean Corpuscular Hemoglobin 29.3 pg (26-34); Mean Corpuscular Volume 92.2 fl (80-100); Mean Platelet Volume 10.1 fl (7.4-10.4); Platelet Count Result 243 k/mm3 (150-375); Red Blood Count 3.86 M/mm3 (4.2-5.4); Red Cell Distribution Width 14.1 % (11.5-14.5); White Blood Count 6.3 K/mm3 (4.5-10.0)
[2023-01-17 06:31] LABS: Anion Gap -1 mmol/L (8-16); Blood Urea Nitrogen 11 mg/dL (7-17); Calcium 8.3 mg/dL (8.4-10.2); Carbon Dioxide 33 mmol/L (22-30); Chloride 104 mmol/L (98-107); Estimated CRCL calculation 44 ml/min; Estimated Glomerular Filt Rate > 60; Glucose 93 mg/dL (65-110); Potassium 3.6 mmol/L (3.4-5.0); Sodium 136 mmol/L (137-145)
[2023-01-17] MEDS: ASPIRIN 81 MG CHEWABLE TABLET PO (09:15)
[2023-01-17] MEDS: EZETIMIBE 10 MG TABLET PO (09:15)
--- NOTE | 2023-01-17 09:47 | PM.IMPN ---
Progress Note: A&P Assessment and Plan (1) Acute ischemic right MCA stroke: Code(s): I63.511 - Cerebral infarction due to unspecified occlusion or stenosis of right middle cerebral artery Status: Acute Assessment and Plan: 01/16: Newly identified stroke area on MRI medial right frontoparietal region. Prior areas of stroke also identified. Started aspirin. Patient is allergic to statins. Consult Neurology. 01/17: CTA did not show obvious cause for stroke. Bubble study normal. Cardiology consulted as per Neurology recommendations. Appreciate recommendations. Patient on aspirin and Zetia. Plan DC to rehabilitation and likely fci placement (2) Debility: Code(s): R53.81 - Other malaise Status: Acute Assessment and Plan: 01/14: Generalized weakness unable to sit on edge of bed or stand on her own, was unable to get out of a chair which is what prompted visit to the hospital. Family interested in placement upon discharge 01/15: Patient consistently leaning to the left and left upper extremity seems weaker than right. Apparent old right intracranial infarcts on CT scan. Ordered MRI. 01/16: New area of stroke identified. Neurology consulted and PT/OT updated. 01/17: PT/OT, new stroke with left sided weakness, especiallly left leg. Social work for placement assistance. (3) Dysphagia: Code(s): R13.10 - Dysphagia, unspecified Status: Acute Assessment and Plan: 01/15: Nursing staff identified patient choking on water yesterday. Barium swallow completed showing that patient requires moderately thickened liquids honey consistency but able to eat food. 01/16: Stroke identified on MRI. Patient is tolerating soft diet with moderately thickened liquids. 01/17: unchanged (4) Dementia: Code(s): F03.90 - Unspecified dementia, unspecified severity, without behavioral disturbance, psychotic disturbance, mood disturbance, and anxiety Status: Acute Assessment and Plan: Usually able to take care of self at home with reminders but has not been able to do so well recently 01/16: Will require placement due to new acute ischemic stroke with left-sided weakness and need for diet alterations relating to dysphagia. 01/17: Unchanged (5) Anxiety: Code(s): F41.9 - Anxiety disorder, unspecified Status: Acute Assessment and Plan: P.r.n. alprazolam (6) Hypertension: Code(s): I10 - Essential (primary) hypertension Status: Acute Assessment and Plan: Patient does not take medication as previously prescribed. Blood pressure reviewed on 01/17 without need for immediate intervention. (7) Anemia: Code(s): D64.9 - Anemia, unspecified Status: Acute Assessment and Plan: Mild and asymptomatic (8) Acute UTI: Code(s): N39.0 - Urinary tract infection, site not specified Status: Acute Assessment and Plan: 01/14: Being treated with Rocephin, urine and blood cultures pending 01/15: Urine culture returns negative. However, due to confusion and convincing appearing UA will continue Rocephin at this time 01/16: discontinue antibiotics, resolved Plan Cardiology consult due to no acute cause of stroke identified. Medical treatment for secondary prevention initiated. Telemetry monitoring in outpatient setting to look for a fib. Patient stable and ready for discharge to placement. PT OT work with Case Management on placement upon discharge Time Spent With Patient Time with patient: 25 - 35 minutes Subjective Date/time seen: 01/17/23 09:47 Interval history: 01/14: This is an 82-year-old female patient who was admitted to the hospital due to weakness debility and confusion in the setting of UTI. Patient usually resides at home with family checking on her but was unable to get up out of a chair outside yesterday for over 5 hours then was unable to get up with assistance of family so EMS had to be called. Patient appears pleasantly confused tod
--- NOTE | 2023-01-17 12:23 | PM.CNCAR ---
Assessment and Plan Assessment and plan (1) Acute ischemic right MCA stroke: Code(s): I63.511 - Cerebral infarction due to unspecified occlusion or stenosis of right middle cerebral artery Status: Acute Assessment and Plan: Acute stroke noted on the right side and other previous strokes also noted on the right side. Given the unilateral nature of her strokes, it makes possibility of atrial fibrillation or cardiac etiology much less likely albeit still possible. There is no evidence of PFO. Stroke is likely related to cerebrovascular disease/small vessel disease intracranially but will put her on monitoring coordinator for now. Echocardiogram was already performed. Agree with aspirin and cholesterol regimen. Outpatient monitoring coordinator to evaluate for atrial fibrillation upon discharge (2) Dysphagia: Code(s): R13.10 - Dysphagia, unspecified Status: Acute (3) Hypertension: Code(s): I10 - Essential (primary) hypertension Status: Acute Assessment and Plan: Permissive hypertension for now. History of Present Illness History of Present Illness Consult date/time: 01/17/23 12:23 Requesting physician: Alba Lopez MD Consult reason: Other (Stroke) Reason For Visit: Weakness, UTI Narrative: Reason consultation: Stroke, evaluate for cardiac source of CVA Date of service 01/17/2023 Requesting provider: Dr. Lopez History: Patient is an 82-year-old female who sustained a right sided cerebral infarction resulting in left-sided weakness as well as dysphagia. Cardiology has been consult to for cardiac evaluation possible stroke. She has no significant cardiac history including no atrial fibrillation. She denies any chest pain, shortness of breath. No syncope, presyncope, paroxysmal nocturnal dyspnea, orthopnea. Daughter states she has had some swelling around her ankles over the past couple of months. Patient admits to some occasional palpitations which are short-lived lasting for a few seconds that occur ?every once in a while ?. No sustained arrhythmia that she can feel. Review of Systems Review of Systems: All systems reviewed & are unremarkable except as noted in HPI and below Constitutional: Constitutional: Denies body ache(s) Eyes: Eyes: Denies blurry vision ENT: Reports Normal hearing present and Reports dysphagia Cardiovascular: Cardiovascular: Denies chest pain and Reports palpitations Respiratory: Respiratory: Denies dyspnea Gastrointestinal: Gastrointestinal: Denies abdominal pain Genitourinary: Genitourinary: Denies hematuria Musculoskeletal: Musculoskeletal: Denies back pain Integumentary/Breasts: Skin/Breast: Denies erythema Neurologic: Denies Abnormal speech present Psychiatric: Psychiatric: Denies confusion Endocrine: Endocrine: Denies excessive sweating Hematologic/Lymphatic: Hematologic/Lymphatic: Denies easy bleeding Allergic/Immunologic: Allergic/Immunologic: Denies GI upset with certain foods PMFSH Past Medical History Medical History Anxiety BMI 23.0-23.9, adult BMI 28.0-28.9,adult Dementia Hyperlipidemia Hypertension IBS (irritable bowel syndrome) Wrist fracture Surgical History Surgical History H/O knee surgery H/O: hysterectomy History of bladder surgery History of removal of pigmented skin lesion History of tonsillectomy Family History Family History Father Family history of malignant neoplasm Mother Family history of coronary artery disease Diabetes mellitus Sibling No problems noted. Social History Social History Social History: The patient lives home alone and she is . 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 She is a lifelong nonsmok
[2023-01-17] MEDS: ENOXAPARIN 40 MG/0.4 ML SYRINGE SUB-Q (12:36)
[2023-01-17 14:00] VITALS: BP 143/60; PULSE 88; RESP 20; TEMP 36.9; O2SAT 97
[2023-01-17] MEDS: LORazepam INJ (*CRX) 2 MG/ML VIAL 0.5 MG IV PUSH (16:08)
--- NOTE | 2023-01-17 18:38 | PC.NURSE ---
I reviewed Danielle Ang's charting and agree with her charting
[2023-01-17 19:45] VITALS: PULSE 88; RESP 20; O2SAT 97
[2023-01-17 22:00] VITALS: BP 139/77; PULSE 93; RESP 22; TEMP 35.8; O2SAT 99
[2023-01-17 22:12] VITALS: O2SAT 98
[2023-01-18 06:00] VITALS: BP 145/57; PULSE 81; RESP 20; TEMP 36.7; O2SAT 95
[2023-01-18 06:26] LABS: Hemoglobin 11.9 g/dL (12.0-15.0); Mean Corpuscular HGB Conc 31.3 g/dl (32-36); Mean Corpuscular Hemoglobin 28.7 pg (26-34); Mean Corpuscular Volume 91.6 fl (80-100); Mean Platelet Volume 10.2 fl (7.4-10.4); Platelet Count Result 251 k/mm3 (150-375); Red Blood Count 4.15 M/mm3 (4.2-5.4); White Blood Count 6.5 K/mm3 (4.5-10.0)
[2023-01-18 06:45] LABS: Anion Gap 3 mmol/L (8-16); Blood Urea Nitrogen 17 mg/dL (7-17); Calcium 8.6 mg/dL (8.4-10.2); Carbon Dioxide 30 mmol/L (22-30); Chloride 104 mmol/L (98-107); Estimated CRCL calculation 38 ml/min; Estimated Glomerular Filt Rate > 60; Glucose 98 mg/dL (65-110); Potassium 4.1 mmol/L (3.4-5.0); Sodium 137 mmol/L (137-145)
[2023-01-18] MEDS: EZETIMIBE 10 MG TABLET PO (08:24)
[2023-01-18] MEDS: ASPIRIN 81 MG CHEWABLE TABLET PO (08:27)
[2023-01-18] MEDS: LORazepam INJ (*CRX) 2 MG/ML VIAL 0.5 MG IV PUSH (10:37)
--- NOTE | 2023-01-18 11:13 | PCOTNOTE ---
Attempted to see Patient this A.M. Patient sleeping, very difficulty to arouse and keep awake at this time. Patient had a visitor in the room that stated the same. RN notified and she stated she has been given a medication to assist with her anxiety and settle her down. Patient unable to participate in services at this time.
[2023-01-18] MEDS: ENOXAPARIN 40 MG/0.4 ML SYRINGE SUB-Q (12:42)
--- NOTE | 2023-01-18 14:29 | PM.IMPN ---
Progress Note: A&P Assessment and Plan (1) Acute ischemic right MCA stroke: Code(s): I63.511 - Cerebral infarction due to unspecified occlusion or stenosis of right middle cerebral artery Status: Acute Assessment and Plan: 01/16: Newly identified stroke area on MRI medial right frontoparietal region. Prior areas of stroke also identified. Started aspirin. Patient is allergic to statins. Consult Neurology. 01/17: CTA did not show obvious cause for stroke. Bubble study normal. Cardiology consulted as per Neurology recommendations. Appreciate recommendations. Patient on aspirin and Zetia. Plan DC to rehabilitation and likely alf placement 01/18: Patient stable for discharge to SNF once approved by insurance. (2) Debility: Code(s): R53.81 - Other malaise Status: Acute Assessment and Plan: 01/14: Generalized weakness unable to sit on edge of bed or stand on her own, was unable to get out of a chair which is what prompted visit to the hospital. Family interested in placement upon discharge 01/15: Patient consistently leaning to the left and left upper extremity seems weaker than right. Apparent old right intracranial infarcts on CT scan. Ordered MRI. 01/16: New area of stroke identified. Neurology consulted and PT/OT updated. 01/17: PT/OT, new stroke with left sided weakness, especiallly left leg. Social work for placement assistance. 01/18: Unchanged (3) Dysphagia: Code(s): R13.10 - Dysphagia, unspecified Status: Acute Assessment and Plan: 01/15: Nursing staff identified patient choking on water yesterday. Barium swallow completed showing that patient requires moderately thickened liquids honey consistency but able to eat food. 01/16: Stroke identified on MRI. Patient is tolerating soft diet with moderately thickened liquids. 01/17: unchanged 01/18: unchanged (4) Dementia: Code(s): F03.90 - Unspecified dementia, unspecified severity, without behavioral disturbance, psychotic disturbance, mood disturbance, and anxiety Status: Acute Assessment and Plan: Usually able to take care of self at home with reminders but has not been able to do so well recently 01/16: Will require placement due to new acute ischemic stroke with left-sided weakness and need for diet alterations relating to dysphagia. 01/17: Unchanged 01/18: Unchanged (5) Anxiety: Code(s): F41.9 - Anxiety disorder, unspecified Status: Acute Assessment and Plan: P.r.n. alprazolam (6) Hypertension: Code(s): I10 - Essential (primary) hypertension Status: Acute Assessment and Plan: Patient does not take medication as previously prescribed. Blood pressure reviewed on 01/18 without need for immediate intervention. (7) Anemia: Code(s): D64.9 - Anemia, unspecified Status: Acute Assessment and Plan: Mild and asymptomatic (8) Acute UTI: Code(s): N39.0 - Urinary tract infection, site not specified Status: Acute Assessment and Plan: 01/14: Being treated with Rocephin, urine and blood cultures pending 01/15: Urine culture returns negative. However, due to confusion and convincing appearing UA will continue Rocephin at this time 01/16: discontinue antibiotics, resolved Resolved Plan Cardiology consult due to no acute cause of stroke identified. Medical treatment for secondary prevention initiated. Telemetry monitoring in outpatient setting to look for a fib. Patient stable and ready for discharge to placement. PT/OT Awaiting insurance approval for [facility] Time Spent With Patient Time with patient: 15 - 25 minutes Subjective Date/time seen: 01/18/23 14:29 Interval history: 01/14: This is an 82-year-old female patient who was admitted to the hospital due to weakness debility and confusion in the setting of UTI. Patient usually resides at home with family checking on her but was unable to get up out of a chair outside
[2023-01-18 14:53] VITALS: BP 140/76; PULSE 120; RESP 18; TEMP 36.5; O2SAT 98
[2023-01-18] MEDS: ALPRAZolam (*CRX) 0.25 MG TABLET PO (16:54)
--- NOTE | 2023-01-18 18:50 | PC.NURSE ---
Patient resting comfortably. Family at bedside this afternoon and updated/all questions addressed. Patient confused but alert.
[2023-01-18 22:00] VITALS: BP 171/82; PULSE 99; RESP 20; TEMP 35.8; O2SAT 95
[2023-01-19 06:00] VITALS: BP 130/80; PULSE 85; RESP 16; TEMP 36; O2SAT 97
[2023-01-19 06:59] LABS: Hematocrit 37.6 % (37.0-47.0); Hemoglobin 11.9 g/dL (12.0-15.0); Mean Corpuscular HGB Conc 31.6 g/dl (32-36); Mean Corpuscular Hemoglobin 28.7 pg (26-34); Mean Corpuscular Volume 90.8 fl (80-100); Mean Platelet Volume 10.1 fl (7.4-10.4); Platelet Count Result 274 k/mm3 (150-375); Red Blood Count 4.14 M/mm3 (4.2-5.4); White Blood Count 6.7 K/mm3 (4.5-10.0)
[2023-01-19 07:10] LABS: Anion Gap 4 mmol/L (8-16); Blood Urea Nitrogen 16 mg/dL (7-17); Calcium 8.5 mg/dL (8.4-10.2); Carbon Dioxide 23 mmol/L (22-30); Chloride 107 mmol/L (98-107); Estimated CRCL calculation 44 ml/min; Estimated Glomerular Filt Rate > 60; Glucose 97 mg/dL (65-110); Potassium 3.8 mmol/L (3.4-5.0); Sodium 134 mmol/L (137-145)
[2023-01-19] MEDS: ASPIRIN 81 MG CHEWABLE TABLET PO (08:18)
[2023-01-19] MEDS: EZETIMIBE 10 MG TABLET PO (08:18)
--- NOTE | 2023-01-19 09:50 | PM.DS ---
DS: Admitting Diagnosis Discharge Date 01/19/2023 Admitting Diagnosis Dementia Acute UTI Anxiety Anemia Hyperlipidemia Hypertension DS: Discharge Diagnosis Discharge Diagnosis (1) Acute ischemic right MCA stroke: Code(s): I63.511 - Cerebral infarction due to unspecified occlusion or stenosis of right middle cerebral artery Status: Acute (2) Debility: Code(s): R53.81 - Other malaise Status: Acute (3) Dysphagia: Code(s): R13.10 - Dysphagia, unspecified Status: Acute (4) Anxiety: Code(s): F41.9 - Anxiety disorder, unspecified Status: Acute (5) Hypertension: Code(s): I10 - Essential (primary) hypertension Status: Acute (6) Anemia: Code(s): D64.9 - Anemia, unspecified Status: Acute (7) Acute UTI: Code(s): N39.0 - Urinary tract infection, site not specified Status: Acute (8) Thyroid mass of unclear etiology: Code(s): E07.89 - Other specified disorders of thyroid Status: Acute DS: Summary Hospital Course Reason for hospitalization: This is an 82-year-old female patient who was admitted to the hospital due to acute inability to care for herself at home. She was noted to be confused and unable to get out of a chair where she sat outside for several hours. Hospital Course: Upon evaluation in the emergency department it appeared the patient had a urinary tract infection which ultimately cultured negative and she was started on IV Rocephin. During admission to the floor patient was noted to be choking when trying to drink water and her left side of her arm and leg were significantly weaker than her right side. Family had not noticed left-sided weakness in the past nor choking on water. Speech therapy evaluation completed showing that patient needed moderately thickened (see honey consistency) liquids but regular food consistency. Further investigation revealed acute right-sided stroke along with several old right-sided strokes of unknown origin. CTA head neck were grossly unremarkable for explanatory cause. Cardiology evaluation completed recommending long-term heart monitor for telemetry to assess for paroxysmal atrial fibrillation as potential cause. Patient was given aspirin unable to take a statin due to prior allergies so she was placed on Zetia. Previously patient has been non compliant with medications. After a couple days working with therapy he was determined that patient would need further rehabilitation and possibly long-term senior care placement due to severe left-sided weakness inability to stand on her own and inability to recognize her own new limitations. SNF placement was approved and patient able to go to [facility] and rehab in [facility]. She was discharged with instructions to follow-up with neurology and for orders for telemetry monitoring. Thyroid mass was notified on imaging, ordered needle biopsy but was informed that this usually happens on an outpatient basis so that test was canceled. Patient's daughter is considering consulting hospice if patient becomes senior care dependent after rehabilitation attempts. Status at Discharge Cognitive/behavioral status at discharge: Awake alert confused with apparent dementia but very pleasant and sad Functional status at discharge: wheelchair bound Overall status at discharge: patient is not back to baseline Time Spent with Patient Time attestation: Total time spent providing and/or coordinating discharge services: Time spent: Greater than 30 minutes Exam Narrative: Awake alert oriented appears stated age Const: General: comfortable and no acute distress HENMT: Face/Nose/Sinus: Normal nares present Mouth: Yes moist mucous membranes Eyes: Sclera: sclerae normal Neck: Neck: supple and no JVD Carotids: no bruits Chest: Other: No reproducible chest wall pain to palpation Resp: Effort & Inspection: normal respiratory effort Aus
[2023-01-19] MEDS: ALPRAZolam (*CRX) 0.25 MG TABLET PO (13:59)
[2023-01-19] MEDS: ENOXAPARIN 40 MG/0.4 ML SYRINGE SUB-Q (13:59)
[2023-01-19 14:00] VITALS: BP 136/78; PULSE 82; RESP 16; TEMP 36.6; O2SAT 97
[2023-01-19 15:26] LABS: SARS-CoV-2 RNA PCR Negative (Negative)
--- NOTE | 2023-01-20 15:41 | PCCCNOTE ---
received a call from Mariam [phone], pt's daughter. Mariam expressed some concerns with me about her mother's transfer to [facility]. I called Michelle from [facility] to notify her of the concerns and she reported that she would definitely call the daughter. I gave the daughter information on [facility], and I educated her that she is able to take the pt from the facility if she is not happy with the care.
== END 2023-01-19 16:20 | DRG 65 ==
LOC: ANHED 18:23 → ANH3MEDSUR 18:47
PROVIDERS: Nurse Practitioner; Admitting Provider Hospitalist; Emergency Provider Emergency Medicine; PCP Family Medicine; Visit Provider Nurse Practitioner
DX: I63.89 Other cerebral infarction (principal); G81.94 Hemiplegia, unspecified affecting left nondominant side; N39.0 Urinary tract infection, site not specified; R13.10 Dysphagia, unspecified; D64.9 Anemia, unspecified; E07.89 Other specified disorders of thyroid; E78.5 Hyperlipidemia, unspecified; F03.90 Unspecified dementia, unspecified severity, without behavioral disturbance, psychotic disturbance, mood disturbance, and anxiety; F41.9 Anxiety disorder, unspecified; I10 Essential (primary) hypertension; K58.9 Irritable bowel syndrome, unspecified; Z90.710 Acquired absence of both cervix and uterus; Z88.0 Allergy status to penicillin; Z99.3 Dependence on wheelchair; Z91.148 Patient's other noncompliance with medication regimen for other reason; Z20.822 Contact with and (suspected) exposure to COVID-19; Z86.73 Personal history of transient ischemic attack (TIA), and cerebral infarction without residual deficits
CPT/HCPCS: 36415; 70450; 70496; 70498; 70551; 72125; 72128; 73521; 76536; 80048; 80053; 80061; 81001; 83036; 83605; 83735; 84443; 85025; 85027; 85610; 85730; 87040; 87086; 87635; 87637; 92611; 93005; 93306; 93308; 96365; 96366; 96372; 96375; 96376; 97110; 97112; 97162; 97164; 97166; 97530; 97535; 99285; A9270; G0378; J0696; J1650; J2060; J2405; Q9967

== ENCOUNTER 2023-02-26 12:55 | Emergency (ER) | payer OTHER, SELFPAY ==
[2023-02-26] VITALS (13 sets, daily range): BP systolic 130–165; BP diastolic 71–87; PULSE 71–99; RESP 13–20; TEMP 36.3; O2SAT 95–98
--- NOTE | ~2023-02-26 | CT_ITS ---
EXAMINATION: CT lumbar spine wo con DATE: 02/26/2023 15:03 INDICATION: Low back pain TECHNIQUE: Computed tomography (CT) of the lumbar spine was performed without intravenous contrast. T he dose-length product (DLP) was 907.96 mGy-cm. Iterative reconstruction was used. COMPARISON: CT, 06/20/2022 FINDINGS: There are 18 degrees of lumbar levoscoliosis. There are 3 mm of anterolisthesis of L4 on L5 and L5 on S1. There is an L1 compression fracture with mild interval worsening since the comparison examination now demonstrating 50% loss of mid vertebral body height. No acute fracture is identified. There is vacuum disc phenomena at L1-2, L2-3, and L4-5 with moderate loss of intervertebral disc spa ce height. There is severe facet joint osteoarthritis in the lower lumbar spine. IMPRESSION: 1. L1 compression fracture with slight interval worsening. No acute findings. 2. Moderate to severe lumbar spondylosis. Reviewed, dictated and finalized at location L.
--- NOTE | ~2023-02-26 | CT_ITS ---
EXAMINATION: CT pelvis wo con DATE: 02/26/2023 15:04 INDICATION: Pelvic pain post fall TECHNIQUE: High resolution computed tomography (CT) of the pelvis was performed without intravenous c ontrast. Additional sagittal and coronal reconstructions were performed. Automated exposure control a nd iterative reconstruction technique were employed. The dose-length product was 206.68 mGy-cm. COMPARISON: Radiographs dated 01/14/[address] abdomen and pelvis dated 06/20/2022 FINDINGS: Bone alignment is normal. No fracture. Mild bilateral hip and sacroiliac osteoarthritis. Moderate low er lumbar spondylosis with severe bilateral lower lumbar facet osteoarthritis. A few small sclerotic bone islands at the bilateral femoral heads and acetabula. 1.3 cm low-density subdermal nodule at the right abdomen most likely epidermoid cyst. Moderate diverticulosis along the sigmoid and visualized portion of the ascending and descending colon without adjacent comparison to suggest diverticulitis. Small amount of dependently layering stones versus milk of calcium in the dependent aspect of the akin dder. Atrophic uterus and bilateral adnexa are unremarkable. No free fluid in the pelvis. No patholog ically enlarged pelvic or inguinal lymphadenopathy. IMPRESSION: 1. Mild bilateral hip and sacroiliac osteoarthritis. No acute osseous abnormality. Reviewed, dictated and finalized at location A. IMPRESSION: 1. Mild bilateral hip and sacroiliac osteoarthritis. No acute osseous abnormali ty.
--- NOTE | ~2023-02-26 | CT_ITS ---
EXAMINATION: CT brain wo con DATE: 02/26/2023 15:03 INDICATION: Fall with head injury TECHNIQUE: Computed tomography (CT) of the head was performed without intravenous contrast. Sagittal and coronal reconstructions were performed. The mA was adjusted according to patient size. Iterative reconstruction technique was employed. The dose-length product was 605.33 mGy-cm. COMPARISON: head CT dated 01/16/2023 FINDINGS: No fracture. No acute intracranial hemorrhage, acute infarction or abnormal extra axial fluid collect ion. Small regions of encephalomalacia in the right parieto-occipital region and right temporal lobe consistent with chronic infarcts. Small old lacunar infarcts at the bilateral thalami and right basal ganglia. Extensive scattered white matter hypoattenuation consistent with chronic sma ll vessel ischemic disease. Symmetric prominence of the sulci consistent with mild age-appropriate di ffuse cerebral volume loss. Ventricles are normal and symmetric. No mass/mass effect. Intracranial ca lcified cerebral atherosclerosis is noted. The orbits, paranasal sinuses and mastoid air cells are no rmal. IMPRESSION: 1. No acute intracranial process. 2. 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 3. Age-related changes including mild diffuse volume loss and extensive scattered white matter hypoat tenuation consistent with chronic small vessel ischemic disease. Reviewed, dictated and finalized at location A. IMPRESSION: 1. No acute intracranial process. 2. 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 3. Age-related changes including mild diffuse volume loss and extensive scatter ed white matter hypoattenuation consistent with chronic small vessel ischemic d isease.
--- NOTE | 2023-02-26 14:38 | ED.FALL ---
HPI - Fall General Chief Complaint: Fall Stated Complaint: fall Time Seen by Provider: 02/26/23 13:05 History of Present Illness HPI Narrative: 82-year-old female present to the emergency department for evaluation after having a ground-level fall. Patient is unsure if she struck her head and she fell. Patient does complain of lower back and pelvic pain. Patient does have prior history of CVA and does not ambulate. Patient is present with her sister. Related Data Allergies Allergy/AdvReac Type Severity Reaction Status Date / Time SHAQUILLE Inhibitors Allergy Unknown Unknown Verified 04/17/22 14:51 amlodipine Allergy Unknown Unknown Verified 04/17/22 14:51 amoxicillin Allergy Unknown Unknown Verified 04/17/22 14:51 atorvastatin Allergy Unknown Unknown Verified 04/17/22 14:51 ibuprofen Allergy Unknown Unknown Verified 04/17/22 14:51 meperidine Allergy Unknown Unknown Verified 04/17/22 14:51 Penicillins Allergy Unknown Unknown Verified 04/17/22 14:51 simvastatin Allergy Unknown Unknown Verified 04/17/22 14:51 codeine AdvReac Unknown N/V Verified 04/17/22 14:51 Review of Systems Review of Systems: All systems reviewed & are unremarkable except as noted in HPI and below PMFSH Past Medical History Medical History Anxiety BMI 23.0-23.9, adult BMI 28.0-28.9,adult Dementia Hyperlipidemia Hypertension IBS (irritable bowel syndrome) Wrist fracture Surgical History Surgical History H/O knee surgery H/O: hysterectomy History of bladder surgery History of removal of pigmented skin lesion History of tonsillectomy Family History Family History Father Family history of malignant neoplasm Mother Family history of coronary artery disease Diabetes mellitus Sibling No problems noted. Social History Social History Social History: The patient lives home alone and she is . 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 She is a lifelong nonsmoker. She has 3 children. 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 HEAD: normocephalic, atraumatic. EYES: PERRLA/EOMI, conjunctivae clear. NOSE: Normal no drainage NECK: Supple. No adenopathy, no masses. RESPIRATORY: Airway patent, respirations nonlabored. Clear to auscultation bilaterally, no rales, rhonchi, wheezing. CARDIOVASCULAR: Regular rate and rhythm without murmurs rubs or gallops. ABDOMINAL: Soft, nontender, nondistended, normal bowel sounds MUSCULOSKELETAL: Moves all extremities. Lower back tenderness to palpation NEURO: Alert. Cranial nerves II through XII intact. Grossly intact SKIN: Warm, dry. Normal Color Course Course Emergency Course: 82-year-old female presented ED for evaluation after pain after ground-level fall. Patient had no acute findings on her head CT no acute fractures on her pelvic CT and chronic findings on her lumbar CT. Family states that she does have a kn
--- NOTE | 2023-02-26 14:48 | PC.NURSE ---
pt taken for CT at this time
== END 2023-02-26 21:09 ==
PROVIDERS: Emergency Provider Emergency Medicine; PCP Family Medicine
DX: S39.92XA Unspecified injury of lower back, initial encounter (principal); S39.93XA Unspecified injury of pelvis, initial encounter; F03.90 Unspecified dementia, unspecified severity, without behavioral disturbance, psychotic disturbance, mood disturbance, and anxiety; E78.5 Hyperlipidemia, unspecified; I10 Essential (primary) hypertension; K58.9 Irritable bowel syndrome, unspecified; Z86.73 Personal history of transient ischemic attack (TIA), and cerebral infarction without residual deficits; Z90.710 Acquired absence of both cervix and uterus; Z79.82 Long term (current) use of aspirin; M16.0 Bilateral primary osteoarthritis of hip; M47.816 Spondylosis without myelopathy or radiculopathy, lumbar region; M46.1 Sacroiliitis, not elsewhere classified; M48.56XA Collapsed vertebra, not elsewhere classified, lumbar region, initial encounter for fracture; W18.30XA Fall on same level, unspecified, initial encounter
CPT/HCPCS: 70450; 72131; 72192; 99284